=== PATIENT | male | born 1950 | race Caucasian/White ===

== ENCOUNTER 2022-05-16 02:20 | Inpatient (IN) | payer MEDICARE ==
[2022-05-16 05:00] VITALS: BMI 30.4
[2022-05-16] MEDS ORDERED: Ondansetron ODT 4 MG TAB SL PRN (05:15)
[2022-05-16] MEDS ORDERED: Acetaminophen 325 MG TAB PO PRN (05:15)
[2022-05-16] MEDS ORDERED: Dextrose 5 % And 0.9 % NaCl 1,000 ML IV SCH (05:15)
[2022-05-16] MEDS ORDERED: Ondansetron PF 4 MG/2 ML Vial IVP PRN (05:15)
[2022-05-16] MEDS ORDERED: Sodium Chloride 0.9% 1,000 ML IV SCH (05:45)
[2022-05-16] MEDS ORDERED: Oseltamivir 75 MG CAP PO SCH (06:00)
[2022-05-16 07:47] LABS: Hemoglobin 10.4 g/dL (14.0-18.0); Mean Corpuscular HGB CONC 30.9 g/dL (32.0-36.0); Mean Corpuscular Hemoglobin 28.3 pg (27.0-31.0); Mean Corpuscular Volume 91.6 fl (78.0-98.0); Mean Platelet Volume 7.9 fL (7.4-10.4); Platelet Count 111 10x3/uL (130-400); RBC Distribution Width 15.6 % (11.5-14.5); Red Blood Cell (RBC) Count 3.68 mill/uL (4.70-6.10); White Blood Cell (WBC) Count 5.4 10x3/uL (4.8-10.8)
[2022-05-16 07:48] LABS: Anion Gap 12 mmol/L (10-20); BUN (Urea Nitrogen) 34 mg/dL (8.4-25.7); Calc. Creatinine Clearance 70 mL/min (70-130); Calcium 8.2 mg/dL (7.8-10.44); Carbon Dioxide 21 mmol/L (23-31); Chloride 109 mmol/L (98-107); Estimated GFR 61; Glucose 229 mg/dL (83-110); Potassium 4.1 mmol/L (3.5-5.1); Sodium 138 mmol/L (136-145)
[2022-05-16 08:33] LABS: #Lymphocytes 0.6 thou/uL (1.20-3.40); #Monocytes 0.5 thou/uL (0.11-0.59); #Neutrophils 4.3 thou/uL (1.40-6.50); %Basophils 0.6 % (0.0-1.0); %Eosinophils 0.5 % (0.0-10.0); %Lymphocytes 11.4 % (21.0-51.0); %Monocytes 8.6 % (0.0-10.0); %Neutrophils 78.8 % (42.0-75.0); Platelet Morphology Comment Appears Adequate; RBC Morphology Normal
[2022-05-16] MEDS ORDERED: predniSONE 20 MG TAB PO SCH (11:45)
[2022-05-16] MEDS: Ipratropium/Albuterol 3 ML NEB NEB SCH ×3 (14:26→23:39)
[2022-05-16] MEDS: Glimepiride 4 MG TAB PO SCH (15:48)
[2022-05-16] MEDS: metFORMIN XR 500 MG TAB PO SCH (15:48)
[2022-05-16] MEDS: Sertraline 100 MG TAB PO SCH (20:02)
[2022-05-16] MEDS: Oseltamivir 75 MG CAP PO SCH (20:02)
[2022-05-16] MEDS: Tamsulosin HCl 0.4 MG CAP PO SCH (20:02)
[2022-05-16 20:31] LABS: #Lymphocytes 0.4 thou/uL (1.20-3.40); #Monocytes 0.1 thou/uL (0.11-0.59); #Neutrophils 3.4 thou/uL (1.40-6.50); %Eosinophils 0.1 % (0.0-10.0); %Lymphocytes 10.3 % (21.0-51.0); %Monocytes 3.2 % (0.0-10.0); %Neutrophils 86.4 % (42.0-75.0); Hemoglobin 11.3 g/dL (14.0-18.0); Mean Corpuscular Hemoglobin 29.3 pg (27.0-31.0); Mean Corpuscular Volume 91.4 fl (78.0-98.0); Platelet Count 110 10x3/uL (130-400); RBC Distribution Width 15.4 % (11.5-14.5); Red Blood Cell (RBC) Count 3.85 mill/uL (4.70-6.10)
[2022-05-16 20:37] LABS: Anion Gap 18 mmol/L (10-20); BUN (Urea Nitrogen) 34 mg/dL (8.4-25.7); Calc. Creatinine Clearance 55 mL/min (70-130); Calcium 8.4 mg/dL (7.8-10.44); Carbon Dioxide 15 mmol/L (23-31); Chloride 107 mmol/L (98-107); Estimated GFR 46; Glucose 399 mg/dL (83-110); Potassium 3.9 mmol/L (3.5-5.1); Sodium 136 mmol/L (136-145)
[2022-05-16 20:54] LABS: Troponin I 2.309 ng/mL (< 0.028)
[2022-05-17 00:28] LABS: Troponin I 3.474 ng/mL (< 0.028)
[2022-05-17] MEDS: Aspirin 325 MG TAB PO SCH ×2 (02:25→02:50)
[2022-05-17 06:33] LABS: #Lymphocytes 0.5 thou/uL (1.20-3.40); #Monocytes 0.5 thou/uL (0.11-0.59); #Neutrophils 3.3 thou/uL (1.40-6.50); %Basophils 0.1 % (0.0-1.0); %Eosinophils 0.1 % (0.0-10.0); %Lymphocytes 10.8 % (21.0-51.0); %Monocytes 10.9 % (0.0-10.0); %Neutrophils 78.1 % (42.0-75.0); Anion Gap 13 mmol/L (10-20); BUN (Urea Nitrogen) 30 mg/dL (8.4-25.7); Calc. Creatinine Clearance 82 mL/min (70-130); Calcium 8.2 mg/dL (7.8-10.44); Carbon Dioxide 21 mmol/L (23-31); Chloride 111 mmol/L (98-107); Estimated GFR 73; Glucose 202 mg/dL (83-110); Hemoglobin 10.1 g/dL (14.0-18.0); Mean Corpuscular HGB CONC 32.5 g/dL (32.0-36.0); Mean Corpuscular Hemoglobin 29.3 pg (27.0-31.0); Mean Corpuscular Volume 90.2 fl (78.0-98.0); Mean Platelet Volume 7.7 fL (7.4-10.4); Platelet Count 105 10x3/uL (130-400); RBC Distribution Width 15.2 % (11.5-14.5); Red Blood Cell (RBC) Count 3.45 mill/uL (4.70-6.10); Sodium 141 mmol/L (136-145); White Blood Cell (WBC) Count 4.2 10x3/uL (4.8-10.8)
[2022-05-17 06:42] LABS: Troponin I 11.151 ng/mL (< 0.028)
[2022-05-17] MEDS: Ipratropium/Albuterol 3 ML NEB NEB SCH (06:42)
[2022-05-17] MEDS: Clopidogrel Bisulfate 75 MG TAB PO SCH (08:55)
[2022-05-17] MEDS: Losartan 25 MG TAB PO SCH (08:55)
[2022-05-17] MEDS: Glimepiride 4 MG TAB PO SCH ×2 (08:55→15:34)
[2022-05-17] MEDS: predniSONE 20 MG TAB PO SCH (08:56)
[2022-05-17] MEDS: Oseltamivir 75 MG CAP PO SCH ×2 (08:56→20:54)
[2022-05-17] MEDS: metFORMIN XR 500 MG TAB PO SCH ×2 (08:56→15:34)
[2022-05-17] MEDS: Amlodipine 10 MG TAB PO SCH (08:56)
[2022-05-17] MEDS: Hydrochlorothiazide 25 MG TAB PO SCH (08:56)
[2022-05-17] MEDS: Aspirin 81 mg Enteric Coated Tablet PO SCH (08:56)
[2022-05-17] MEDS: Ezetimibe 10 MG TAB PO SCH (08:56)
[2022-05-17] MEDS: Empagliflozin 10 MG TAB PO SCH (08:56)
[2022-05-17] MEDS: Rosuvastatin 20 MG TAB PO SCH (08:56)
[2022-05-17] MEDS ORDERED: Ipratropium/Albuterol 3 ML NEB NEB PRN (11:28)
[2022-05-17 16:53] LABS: CKMB 26.6 ng/mL (0-6.6)
[2022-05-17] MEDS: Tamsulosin HCl 0.4 MG CAP PO SCH (20:54)
[2022-05-17] MEDS: Sertraline 100 MG TAB PO SCH (20:54)
[2022-05-18] MEDS ORDERED: Benzonatate 100 MG CAP PO SCH (05:00)
[2022-05-18 05:01] LABS: #Lymphocytes 1.1 thou/uL (1.20-3.40); #Monocytes 0.5 thou/uL (0.11-0.59); #Neutrophils 8.9 thou/uL (1.40-6.50); %Basophils 0.2 % (0.0-1.0); %Eosinophils 0.1 % (0.0-10.0); %Lymphocytes 10.1 % (21.0-51.0); %Neutrophils 84.5 % (42.0-75.0); Hemoglobin 12.1 g/dL (14.0-18.0); Mean Corpuscular HGB CONC 32.1 g/dL (32.0-36.0); Mean Corpuscular Hemoglobin 28.9 pg (27.0-31.0); Platelet Count 163 10x3/uL (130-400); RBC Distribution Width 15.3 % (11.5-14.5); Red Blood Cell (RBC) Count 4.19 mill/uL (4.70-6.10); White Blood Cell (WBC) Count 10.5 10x3/uL (4.8-10.8)
[2022-05-18 05:25] LABS: Anion Gap 15 mmol/L (10-20); BUN (Urea Nitrogen) 32 mg/dL (8.4-25.7); Calc. Creatinine Clearance 78 mL/min (70-130); Calcium 9.1 mg/dL (7.8-10.44); Carbon Dioxide 19 mmol/L (23-31); Cardiac Risk 2.8 (Less than 4.5); Chloride 110 mmol/L (98-107); Cholesterol 111 mg/dl (< 200 Desired); Estimated GFR 69; Glucose 178 mg/dL (83-110); HDL Cholesterol 39 mg/dL (>60 Neg Risk); LDL Cholesterol, Calculated 34 mg/dL; Potassium 4.1 mmol/L (3.5-5.1); Sodium 140 mmol/L (136-145); Triglycerides 192 mg/dL (Less than 150)
[2022-05-18 05:29] LABS: Hemoglobin A1c 6.2 % (4.0-6.0)
[2022-05-18] MEDS: Acetaminophen 325 MG TAB PO PRN ×2 (09:40→23:45)
[2022-05-18] MEDS: Oseltamivir 75 MG CAP PO SCH ×2 (09:40→20:42)
[2022-05-18] MEDS: Empagliflozin 10 MG TAB PO SCH (09:40)
[2022-05-18] MEDS: Clopidogrel Bisulfate 75 MG TAB PO SCH (09:41)
[2022-05-18] MEDS: Rosuvastatin 20 MG TAB PO SCH (09:41)
[2022-05-18] MEDS: Losartan 25 MG TAB PO SCH (09:41)
[2022-05-18] MEDS: Glimepiride 4 MG TAB PO SCH ×2 (09:41→18:23)
[2022-05-18] MEDS: Aspirin 81 mg Enteric Coated Tablet PO SCH (09:41)
[2022-05-18] MEDS: Hydrochlorothiazide 25 MG TAB PO SCH (09:42)
[2022-05-18] MEDS: Amlodipine 10 MG TAB PO SCH (09:42)
[2022-05-18] MEDS: Ezetimibe 10 MG TAB PO SCH (09:42)
[2022-05-18] MEDS: predniSONE 20 MG TAB PO SCH (09:43)
[2022-05-18] MEDS: metFORMIN XR 500 MG TAB PO SCH (09:48)
[2022-05-18 11:03] LABS: Critical Call Chem Troponin I RESULT DECREASING; Troponin I 13.432 ng/mL (< 0.028)
[2022-05-18] MEDS ORDERED: Sodium Chloride 0.9% 1,000 ML IV SCH (11:30)
[2022-05-18] MEDS: Ketorolac Tromethamine 30 MG/ML VIAL IVP PRN (12:06)
[2022-05-18] MEDS ORDERED: Communication Order-Pharmacy FS SCH (16:30)
[2022-05-18] MEDS: Benzonatate 100 MG CAP PO PRN (20:41)
[2022-05-18] MEDS: Tamsulosin HCl 0.4 MG CAP PO SCH (20:42)
[2022-05-18] MEDS: Sertraline 100 MG TAB PO SCH (20:42)
[2022-05-19] MEDS: Rosuvastatin 20 MG TAB PO SCH (05:44)
[2022-05-19] MEDS: Oseltamivir 75 MG CAP PO SCH ×2 (05:44→20:23)
[2022-05-19] MEDS: Losartan 25 MG TAB PO SCH (05:44)
[2022-05-19] MEDS: Benzonatate 100 MG CAP PO PRN ×2 (05:44→20:23)
[2022-05-19] MEDS: Clopidogrel Bisulfate 75 MG TAB PO SCH (05:45)
[2022-05-19] MEDS: Aspirin 81 mg Enteric Coated Tablet PO SCH (05:45)
[2022-05-19] MEDS: Amlodipine 10 MG TAB PO SCH (05:45)
[2022-05-19] MEDS: Ezetimibe 10 MG TAB PO SCH (05:45)
[2022-05-19 08:29] LABS: #Lymphocytes 0.8 thou/uL (1.20-3.40); #Monocytes 0.4 thou/uL (0.11-0.59); #Neutrophils 4.8 thou/uL (1.40-6.50); %Basophils 0.1 % (0.0-1.0); %Eosinophils 0.2 % (0.0-10.0); %Lymphocytes 13.7 % (21.0-51.0); %Monocytes 6.3 % (0.0-10.0); %Neutrophils 79.6 % (42.0-75.0); Hemoglobin 10.8 g/dL (14.0-18.0); Mean Corpuscular HGB CONC 33.8 g/dL (32.0-36.0); Mean Corpuscular Hemoglobin 30.7 pg (27.0-31.0); Mean Corpuscular Volume 90.8 fl (78.0-98.0); Mean Platelet Volume 7.3 fL (7.4-10.4); Platelet Count 140 10x3/uL (130-400); RBC Distribution Width 15.3 % (11.5-14.5); Red Blood Cell (RBC) Count 3.52 mill/uL (4.70-6.10)
[2022-05-19 08:51] LABS: Anion Gap 14 mmol/L (10-20); BUN (Urea Nitrogen) 29 mg/dL (8.4-25.7); Calc. Creatinine Clearance 86 mL/min (70-130); Calcium 8.7 mg/dL (7.8-10.44); Carbon Dioxide 21 mmol/L (23-31); Chloride 106 mmol/L (98-107); Estimated GFR 78; Glucose 128 mg/dL (83-110); Potassium 3.5 mmol/L (3.5-5.1); Sodium 137 mmol/L (136-145)
[2022-05-19] MEDS ORDERED: Iopamidol 370 76% 100 ML VIAL ONE (09:14)
[2022-05-19] MEDS ORDERED: Iopamidol 370 76% 50 ML VIAL FS ONE (09:14)
[2022-05-19] MEDS ORDERED: Nitroglycerin 100MG/250ML BOT 250 ML ONE (11:16)
[2022-05-19] MEDS ORDERED: Lidocaine 1% PF 5 ML VIAL ONE (11:16)
[2022-05-19] MEDS ORDERED: Verapamil 5 MG/2 ML VIAL ONE (11:16)
[2022-05-19] MEDS ORDERED: Heparin 10,000 UNITS/ 10 ML VIAL ONE (11:16)
[2022-05-19] MEDS ORDERED: FENTANYL 50 MCG/ML 1 ML VIAL ONE (11:33)
[2022-05-19] MEDS ORDERED: Midazolam HCl 2 mg/2 ml Vial ONE (11:34)
[2022-05-19] MEDS ORDERED: Lidocaine 1% (PF) 30 ML VIAL ONE (12:21)
[2022-05-19] MEDS ORDERED: Nitroglycerin 0.4 MG TAB (25 Tab Bottle) SL PRN (14:10)
[2022-05-19] MEDS ORDERED: Sodium Chloride 0.9% 200 ML IV PRN (14:10)
[2022-05-19] MEDS: predniSONE 5 MG TAB PO SCH (17:13)
[2022-05-19] MEDS: Tamsulosin HCl 0.4 MG CAP PO SCH (20:23)
[2022-05-19] MEDS: Sertraline 100 MG TAB PO SCH (20:23)
[2022-05-19] MEDS: GUAIFENESIN SF SOLN 200 MG/10 ML UDCUP PO PRN (22:48)
[2022-05-20 05:10] LABS: Anion Gap 14 mmol/L (10-20); BUN (Urea Nitrogen) 30 mg/dL (8.4-25.7); Calc. Creatinine Clearance 77 mL/min (70-130); Calcium 8.2 mg/dL (7.8-10.44); Carbon Dioxide 21 mmol/L (23-31); Chloride 105 mmol/L (98-107); Estimated GFR 68; Glucose 209 mg/dL (83-110); Potassium 3.4 mmol/L (3.5-5.1); Sodium 137 mmol/L (136-145)
[2022-05-20] MEDS ORDERED: Electrolyte Replacement Protocol 1 EACH FS SCH (07:27)
[2022-05-20] MEDS ORDERED: Potassium Chloride 20 MEQ TAB PO SCH (08:00)
[2022-05-20] MEDS: Rosuvastatin 20 MG TAB PO SCH (09:39)
[2022-05-20] MEDS: Ezetimibe 10 MG TAB PO SCH (09:39)
[2022-05-20] MEDS: Aspirin 81 mg Enteric Coated Tablet PO SCH (09:39)
[2022-05-20] MEDS: Losartan 25 MG TAB PO SCH (09:41)
[2022-05-20] MEDS: Amlodipine 10 MG TAB PO SCH (09:42)
[2022-05-20] MEDS: Oseltamivir 75 MG CAP PO SCH ×2 (09:42→20:48)
[2022-05-20] MEDS: predniSONE 5 MG TAB PO SCH (09:42)
[2022-05-20] MEDS ORDERED: Furosemide 40 MG TAB PO SCH (10:00)
[2022-05-20] MEDS: hydrALAZINE 25 MG TAB PO SCH (20:46)
[2022-05-20] MEDS: Famotidine 20 MG TAB PO SCH (20:48)
[2022-05-20] MEDS: Tamsulosin HCl 0.4 MG CAP PO SCH (20:48)
[2022-05-20] MEDS: Sertraline 100 MG TAB PO SCH (20:48)
[2022-05-20] MEDS: GUAIFENESIN SF SOLN 200 MG/10 ML UDCUP PO PRN (20:48)
[2022-05-21 05:08] LABS: #Lymphocytes 0.6 thou/uL (1.20-3.40); #Monocytes 0.3 thou/uL (0.11-0.59); #Neutrophils 3.8 thou/uL (1.40-6.50); %Eosinophils 0.4 % (0.0-10.0); %Lymphocytes 11.9 % (21.0-51.0); %Monocytes 6.9 % (0.0-10.0); %Neutrophils 80.7 % (42.0-75.0); Hemoglobin 9.7 g/dL (14.0-18.0); Mean Corpuscular HGB CONC 32.4 g/dL (32.0-36.0); Mean Corpuscular Hemoglobin 29.4 pg (27.0-31.0); Mean Corpuscular Volume 90.6 fl (78.0-98.0); Mean Platelet Volume 7.8 fL (7.4-10.4); Platelet Count 154 10x3/uL (130-400); RBC Distribution Width 15.1 % (11.5-14.5); White Blood Cell (WBC) Count 4.7 10x3/uL (4.8-10.8)
[2022-05-21 05:18] LABS: ALT (SGPT) 83 U/L (8-55); AST (SGOT) 70 U/L (5-34); Albumin 3.1 g/dL (3.4-4.8); Alkaline Phosphatase 68 U/L (40-110); Anion Gap 14 mmol/L (10-20); BUN (Urea Nitrogen) 38 mg/dL (8.4-25.7); Bilirubin, Total 0.6 mg/dL (0.2-1.2); Calc. Creatinine Clearance 73 mL/min (70-130); Calcium 8.4 mg/dL (7.8-10.44); Carbon Dioxide 21 mmol/L (23-31); Chloride 107 mmol/L (98-107); Estimated GFR 64; Globulin 3.2 g/dL (2.4-3.5); Glucose 329 mg/dL (83-110); Magnesium 2.3 mg/dL (1.6-2.6); Phosphorus 2.4 mg/dL (2.3-4.7); Potassium 3.7 mmol/L (3.5-5.1); Protein, Total 6.3 g/dL (5.8-8.1); Sodium 138 mmol/L (136-145)
[2022-05-21] MEDS: Rosuvastatin 20 MG TAB PO SCH (10:54)
[2022-05-21] MEDS: Amlodipine 10 MG TAB PO SCH (10:55)
[2022-05-21] MEDS: predniSONE 5 MG TAB PO SCH (10:55)
[2022-05-21] MEDS: Aspirin 81 mg Enteric Coated Tablet PO SCH (10:55)
[2022-05-21] MEDS: Famotidine 20 MG TAB PO SCH ×2 (10:55→20:09)
[2022-05-21] MEDS: Ezetimibe 10 MG TAB PO SCH (10:55)
[2022-05-21] MEDS: Furosemide 40 MG TAB PO SCH (10:56)
[2022-05-21] MEDS: Losartan 25 MG TAB PO SCH (10:57)
[2022-05-21] MEDS: hydrALAZINE 25 MG TAB PO SCH ×3 (11:03→20:08)
[2022-05-21] MEDS ORDERED: ALPRAZolam 1 MG TAB PO SCH (19:30)
[2022-05-21] MEDS: Sertraline 100 MG TAB PO SCH (20:09)
[2022-05-21] MEDS: Tamsulosin HCl 0.4 MG CAP PO SCH (20:09)
[2022-05-21] MEDS: GUAIFENESIN SF SOLN 200 MG/10 ML UDCUP PO PRN (20:10)
[2022-05-21] MEDS: Doxycycline 100 MG in Sodium Chloride 0.9% 100 ML IVPB SCH (20:10)
[2022-05-21] MEDS ORDERED: hydrALAZINE 25 MG TAB PO SCH (21:00)
[2022-05-22] MEDS ORDERED: Ipratropium Bromide 2.5 ml Neb NEB SCH (03:00)
[2022-05-22 05:55] LABS: #Eosinphils 0.1 thou/uL (0.0-0.7); #Lymphocytes 0.7 thou/uL (1.20-3.40); #Monocytes 0.4 thou/uL (0.11-0.59); #Neutrophils 4.7 thou/uL (1.40-6.50); %Eosinophils 0.9 % (0.0-10.0); %Lymphocytes 12.1 % (21.0-51.0); %Monocytes 6.2 % (0.0-10.0); %Neutrophils 80.9 % (42.0-75.0); Mean Corpuscular HGB CONC 34.6 g/dL (32.0-36.0); Mean Corpuscular Hemoglobin 30.9 pg (27.0-31.0); Mean Corpuscular Volume 89.3 fl (78.0-98.0); Mean Platelet Volume 7.3 fL (7.4-10.4); Platelet Count 184 10x3/uL (130-400); RBC Distribution Width 14.8 % (11.5-14.5); Red Blood Cell (RBC) Count 3.23 mill/uL (4.70-6.10); White Blood Cell (WBC) Count 5.8 10x3/uL (4.8-10.8)
[2022-05-22] MEDS: hydrALAZINE 25 MG TAB PO SCH ×3 (06:01→20:56)
[2022-05-22 06:18] LABS: ALT (SGPT) 60 U/L (8-55); AST (SGOT) 25 U/L (5-34); Albumin 3.2 g/dL (3.4-4.8); Alkaline Phosphatase 73 U/L (40-110); Anion Gap 13 mmol/L (10-20); BUN (Urea Nitrogen) 31 mg/dL (8.4-25.7); Bilirubin, Total 0.6 mg/dL (0.2-1.2); Calc. Creatinine Clearance 75 mL/min (70-130); Calcium 8.3 mg/dL (7.8-10.44); Carbon Dioxide 23 mmol/L (23-31); Chloride 107 mmol/L (98-107); Estimated GFR 66; Globulin 3.2 g/dL (2.4-3.5); Glucose 389 mg/dL (83-110); Magnesium 2.3 mg/dL (1.6-2.6); Phosphorus 2.3 mg/dL (2.3-4.7); Potassium 3.6 mmol/L (3.5-5.1); Protein, Total 6.4 g/dL (5.8-8.1); Sodium 139 mmol/L (136-145)
[2022-05-22] MEDS: Aspirin 81 mg Enteric Coated Tablet PO SCH (09:26)
[2022-05-22] MEDS: Furosemide 40 MG TAB PO SCH (09:26)
[2022-05-22] MEDS: Famotidine 20 MG TAB PO SCH ×2 (09:27→20:57)
[2022-05-22] MEDS: Ezetimibe 10 MG TAB PO SCH (09:27)
[2022-05-22] MEDS: Rosuvastatin 20 MG TAB PO SCH (09:27)
[2022-05-22] MEDS: Losartan 25 MG TAB PO SCH (09:27)
[2022-05-22] MEDS: Amlodipine 10 MG TAB PO SCH (09:27)
[2022-05-22] MEDS: predniSONE 5 MG TAB PO SCH (09:27)
[2022-05-22] MEDS: Doxycycline 100 MG in Sodium Chloride 0.9% 100 ML IVPB SCH ×2 (09:30→20:58)
[2022-05-22] MEDS ORDERED: Furosemide 20 MG/2 ML VIAL SLOW IVP SCH (10:15)
[2022-05-22 11:30] LABS: Actual Bicarbonate (HCO3a) 24.5 mEq/L (22-28); Base Excess (BEa) 1.3 mEq/L (-2.0 to +3.0); CO2 Tension 33.8 mmHg (35.0-45.0); Calcium, Ionized (arterial) 1.11 mmol/L (1.12-1.30); Carboxyhemoglobin (COHb) 0.1 gm% (0.0-3.0); Hemoglobin (Hb) 10.5 g/dL (14.0-18.0); Potassium - ABG Lab 3.65 mmol/L (3.70-5.30); pH, Arterial 7.48 (7.35-7.45)
[2022-05-22 11:35] LABS: Puncture Site RBA
[2022-05-22] MEDS ORDERED: Piperacillin/Tazobactam 3.375 GM in Sodium Chloride 0.9% 100 ML IVPB SCH ×2 (13:30→14:00)
[2022-05-22] MEDS: GUAIFENESIN SF SOLN 200 MG/10 ML UDCUP PO PRN (14:18)
[2022-05-22] MEDS ORDERED: Lisinopril 5 MG TAB PO SCH (15:00)
[2022-05-22] MEDS ORDERED: Dextrose 50% Abboject 50 ML SYRINGE SLOW IVP PRN (16:19)
[2022-05-22] MEDS ORDERED: Dextrose 5% in Water 1,000 ML IV PRN (16:19)
[2022-05-22] MEDS: HumaLOG 300 UNITS/3 ML VIAL SC PRN ×2 (16:58→21:08)
[2022-05-22] MEDS: Acetaminophen 325 MG TAB PO PRN (18:40)
[2022-05-22] MEDS: Piperacillin/Tazobactam 3.375 GM in Sodium Chloride 0.9% 100 ML IVPB SCH (18:40)
[2022-05-22] MEDS: Tamsulosin HCl 0.4 MG CAP PO SCH (20:55)
[2022-05-22] MEDS: Sertraline 100 MG TAB PO SCH (20:56)
[2022-05-22] MEDS: Lisinopril 10 MG TAB PO SCH (20:57)
[2022-05-23] MEDS: Piperacillin/Tazobactam 3.375 GM in Sodium Chloride 0.9% 100 ML IVPB SCH ×3 (02:29→17:53)
[2022-05-23] MEDS: Ketorolac Tromethamine 30 MG/ML VIAL IVP PRN (02:34)
[2022-05-23 03:50] LABS: #Eosinphils 0.1 thou/uL (0.0-0.7); #Lymphocytes 0.9 thou/uL (1.20-3.40); #Monocytes 0.6 thou/uL (0.11-0.59); #Neutrophils 5.3 thou/uL (1.40-6.50); %Basophils 0.6 % (0.0-1.0); %Eosinophils 1.3 % (0.0-10.0); %Lymphocytes 13.2 % (21.0-51.0); %Monocytes 8.5 % (0.0-10.0); %Neutrophils 76.4 % (42.0-75.0); Hemoglobin 9.2 g/dL (14.0-18.0); Mean Corpuscular HGB CONC 31.8 g/dL (32.0-36.0); Mean Corpuscular Hemoglobin 29.2 pg (27.0-31.0); Mean Corpuscular Volume 91.8 fl (78.0-98.0); Mean Platelet Volume 7.7 fL (7.4-10.4); Platelet Count 188 10x3/uL (130-400); RBC Distribution Width 15.1 % (11.5-14.5); Red Blood Cell (RBC) Count 3.16 mill/uL (4.70-6.10); White Blood Cell (WBC) Count 6.9 10x3/uL (4.8-10.8)
[2022-05-23 04:56] LABS: ALT (SGPT) 76 U/L (8-55); AST (SGOT) 72 U/L (5-34); Albumin 2.7 g/dL (3.4-4.8); Alkaline Phosphatase 76 U/L (40-110); Anion Gap 15 mmol/L (10-20); BUN (Urea Nitrogen) 28 mg/dL (8.4-25.7); Bilirubin, Total 0.6 mg/dL (0.2-1.2); Calc. Creatinine Clearance 0 mL/min (70-130); Carbon Dioxide 17 mmol/L (23-31); Chloride 110 mmol/L (98-107); Estimated GFR 71; Globulin 3.5 g/dL (2.4-3.5); Glucose 213 mg/dL (83-110); Potassium 4.3 mmol/L (3.5-5.1); Protein, Total 6.2 g/dL (5.8-8.1); Sodium 138 mmol/L (136-145)
[2022-05-23] MEDS: hydrALAZINE 25 MG TAB PO SCH ×3 (06:07→21:35)
[2022-05-23] MEDS: HumaLOG 300 UNITS/3 ML VIAL SC PRN ×4 (06:08→21:55)
[2022-05-23] MEDS: Losartan 25 MG TAB PO SCH (08:28)
[2022-05-23] MEDS: Ezetimibe 10 MG TAB PO SCH (08:28)
[2022-05-23] MEDS: Amlodipine 10 MG TAB PO SCH (08:28)
[2022-05-23] MEDS: Lisinopril 10 MG TAB PO SCH ×2 (08:28→21:36)
[2022-05-23] MEDS: Rosuvastatin 20 MG TAB PO SCH (08:28)
[2022-05-23] MEDS: predniSONE 5 MG TAB PO SCH (08:29)
[2022-05-23] MEDS: Doxycycline 100 MG in Sodium Chloride 0.9% 100 ML IVPB SCH ×2 (08:29→21:48)
[2022-05-23] MEDS: Aspirin 81 mg Enteric Coated Tablet PO SCH (08:29)
[2022-05-23] MEDS: Furosemide 40 MG TAB PO SCH (08:29)
[2022-05-23] MEDS: Acetaminophen 325 MG TAB PO PRN (16:23)
[2022-05-23] MEDS ORDERED: Promethazine HCl 12.5 MG in Sodium Chloride 0.9% 50 ML IVPB PRN (18:55)
[2022-05-23] MEDS: GUAIFENESIN SF SOLN 200 MG/10 ML UDCUP PO PRN (19:09)
[2022-05-23] MEDS: Sertraline 100 MG TAB PO SCH (21:35)
[2022-05-23] MEDS: Tamsulosin HCl 0.4 MG CAP PO SCH (21:35)
[2022-05-24] MEDS: GUAIFENESIN SF SOLN 200 MG/10 ML UDCUP PO PRN ×2 (00:51→08:14)
[2022-05-24] MEDS: Piperacillin/Tazobactam 3.375 GM in Sodium Chloride 0.9% 100 ML IVPB SCH ×3 (03:04→20:31)
[2022-05-24] MEDS: hydrALAZINE 25 MG TAB PO SCH ×3 (05:05→21:20)
[2022-05-24] MEDS: HumaLOG 300 UNITS/3 ML VIAL SC PRN ×2 (06:29→20:37)
[2022-05-24] MEDS: Doxycycline 100 MG in Sodium Chloride 0.9% 100 ML IVPB SCH ×2 (08:00→20:31)
[2022-05-24] MEDS: Aspirin 81 mg Enteric Coated Tablet PO SCH (08:01)
[2022-05-24] MEDS: Losartan 25 MG TAB PO SCH (08:01)
[2022-05-24] MEDS: Ezetimibe 10 MG TAB PO SCH (08:01)
[2022-05-24] MEDS: Lisinopril 10 MG TAB PO SCH (08:01)
[2022-05-24] MEDS: Rosuvastatin 20 MG TAB PO SCH (08:01)
[2022-05-24] MEDS: Furosemide 40 MG TAB PO SCH (08:02)
[2022-05-24] MEDS: Amlodipine 10 MG TAB PO SCH (08:02)
[2022-05-24] MEDS: predniSONE 5 MG TAB PO SCH (08:02)
[2022-05-24] MEDS: Sertraline 100 MG TAB PO SCH (20:31)
[2022-05-24] MEDS: Tamsulosin HCl 0.4 MG CAP PO SCH (20:31)
[2022-05-24] MEDS: Acetaminophen 325 MG TAB PO PRN (21:54)
[2022-05-25] MEDS: Acetaminophen 325 MG TAB PO PRN ×2 (03:02→08:33)
[2022-05-25] MEDS: Piperacillin/Tazobactam 3.375 GM in Sodium Chloride 0.9% 100 ML IVPB SCH ×3 (03:02→20:01)
[2022-05-25 03:45] LABS: #Eosinphils 0.1 thou/uL (0.0-0.7); #Monocytes 0.7 thou/uL (0.11-0.59); #Neutrophils 5.7 thou/uL (1.40-6.50); %Basophils 0.2 % (0.0-1.0); %Eosinophils 1.4 % (0.0-10.0); %Lymphocytes 13.6 % (21.0-51.0); %Monocytes 9.6 % (0.0-10.0); %Neutrophils 75.2 % (42.0-75.0); Hemoglobin 9.7 g/dL (14.0-18.0); Mean Corpuscular HGB CONC 31.6 g/dL (32.0-36.0); Mean Corpuscular Hemoglobin 28.4 pg (27.0-31.0); Mean Corpuscular Volume 89.9 fl (78.0-98.0); Platelet Count 206 10x3/uL (130-400); RBC Distribution Width 15.3 % (11.5-14.5); Red Blood Cell (RBC) Count 3.42 mill/uL (4.70-6.10); White Blood Cell (WBC) Count 7.5 10x3/uL (4.8-10.8)
[2022-05-25 04:07] LABS: ALT (SGPT) 131 U/L (8-55); AST (SGOT) 68 U/L (5-34); Alkaline Phosphatase 89 U/L (40-110); Anion Gap 11 mmol/L (10-20); BUN (Urea Nitrogen) 26 mg/dL (8.4-25.7); Bilirubin, Total 0.7 mg/dL (0.2-1.2); Calc. Creatinine Clearance 87 mL/min (70-130); Calcium 8.1 mg/dL (7.8-10.44); Carbon Dioxide 23 mmol/L (23-31); Chloride 111 mmol/L (98-107); Estimated GFR 74; Globulin 2.5 g/dL (2.4-3.5); Glucose 251 mg/dL (83-110); Magnesium 1.7 mg/dL (1.6-2.6); Potassium 3.4 mmol/L (3.5-5.1); Protein, Total 5.5 g/dL (5.8-8.1); Sodium 142 mmol/L (136-145)
[2022-05-25] MEDS: hydrALAZINE 25 MG TAB PO SCH ×3 (06:28→21:19)
[2022-05-25] MEDS: HumaLOG 300 UNITS/3 ML VIAL SC PRN ×4 (06:31→20:12)
[2022-05-25] MEDS ORDERED: Potassium Chloride 20 MEQ TAB PO SCH (08:00)
[2022-05-25] MEDS ORDERED: Magnesium 2 GM/50 ML(in water) 2 GM in Premix Bag 1 BAG IVPB SCH (08:00)
[2022-05-25] MEDS: Losartan 25 MG TAB PO SCH (08:28)
[2022-05-25] MEDS: Ezetimibe 10 MG TAB PO SCH (08:29)
[2022-05-25] MEDS: Amlodipine 10 MG TAB PO SCH (08:29)
[2022-05-25] MEDS: Doxycycline 100 MG CAP PO SCH ×2 (08:29→20:01)
[2022-05-25] MEDS: Rosuvastatin 20 MG TAB PO SCH (08:29)
[2022-05-25] MEDS: Furosemide 40 MG TAB PO SCH (08:29)
[2022-05-25] MEDS: Aspirin 81 mg Enteric Coated Tablet PO SCH (08:30)
[2022-05-25] MEDS ORDERED: Ibuprofen 600 MG TAB PO SCH (14:00)
[2022-05-25] MEDS ORDERED: Furosemide 40 MG/4 ML VIAL SLOW IVP SCH (16:13)
[2022-05-25] MEDS: Ibuprofen 600 MG TAB PO SCH ×2 (16:44→23:37)
[2022-05-25] MEDS: Tamsulosin HCl 0.4 MG CAP PO SCH (20:01)
[2022-05-25] MEDS: Sertraline 100 MG TAB PO SCH (20:01)
[2022-05-25] MEDS: GUAIFENESIN SF SOLN 200 MG/10 ML UDCUP PO PRN ×2 (20:10→23:37)
[2022-05-26] MEDS: Piperacillin/Tazobactam 3.375 GM in Sodium Chloride 0.9% 100 ML IVPB SCH ×3 (03:22→20:24)
[2022-05-26 03:57] LABS: #Eosinphils 0.1 thou/uL (0.0-0.7); #Lymphocytes 1.1 thou/uL (1.20-3.40); #Monocytes 0.6 thou/uL (0.11-0.59); #Neutrophils 5.8 thou/uL (1.40-6.50); %Basophils 0.5 % (0.0-1.0); %Eosinophils 1.5 % (0.0-10.0); %Lymphocytes 13.8 % (21.0-51.0); %Monocytes 8.1 % (0.0-10.0); %Neutrophils 76.2 % (42.0-75.0); Hemoglobin 9.6 g/dL (14.0-18.0); Mean Corpuscular HGB CONC 32.9 g/dL (32.0-36.0); Mean Corpuscular Hemoglobin 29.9 pg (27.0-31.0); Mean Corpuscular Volume 90.9 fl (78.0-98.0); Mean Platelet Volume 7.3 fL (7.4-10.4); Platelet Count 204 10x3/uL (130-400); RBC Distribution Width 15.6 % (11.5-14.5); White Blood Cell (WBC) Count 7.6 10x3/uL (4.8-10.8)
[2022-05-26 04:20] LABS: ALT (SGPT) 107 U/L (8-55); AST (SGOT) 43 U/L (5-34); Albumin 2.8 g/dL (3.4-4.8); Alkaline Phosphatase 84 U/L (40-110); Anion Gap 13 mmol/L (10-20); BUN (Urea Nitrogen) 27 mg/dL (8.4-25.7); Bilirubin, Total 0.6 mg/dL (0.2-1.2); Calc. Creatinine Clearance 79 mL/min (70-130); Calcium 8.3 mg/dL (7.8-10.44); Carbon Dioxide 22 mmol/L (23-31); Chloride 109 mmol/L (98-107); Estimated GFR 66; Globulin 3.2 g/dL (2.4-3.5); Glucose 272 mg/dL (83-110); Potassium 3.4 mmol/L (3.5-5.1); Sodium 141 mmol/L (136-145)
[2022-05-26] MEDS: Ibuprofen 600 MG TAB PO SCH ×3 (05:28→16:51)
[2022-05-26] MEDS: hydrALAZINE 25 MG TAB PO SCH ×3 (05:28→21:23)
[2022-05-26] MEDS: HumaLOG 300 UNITS/3 ML VIAL SC PRN ×3 (06:20→20:25)
[2022-05-26] MEDS: Rosuvastatin 20 MG TAB PO SCH (08:28)
[2022-05-26] MEDS: Furosemide 40 MG TAB PO SCH (08:28)
[2022-05-26] MEDS: Losartan 25 MG TAB PO SCH (08:28)
[2022-05-26] MEDS: Amlodipine 10 MG TAB PO SCH (08:28)
[2022-05-26] MEDS: Doxycycline 100 MG CAP PO SCH ×2 (08:28→20:24)
[2022-05-26] MEDS: Aspirin 81 mg Enteric Coated Tablet PO SCH (08:28)
[2022-05-26] MEDS: Ezetimibe 10 MG TAB PO SCH (08:28)
[2022-05-26] MEDS ORDERED: Potassium Chloride 20 MEQ TAB PO SCH ×2 (10:15→12:00)
[2022-05-26] MEDS ORDERED: Ipratropium/Albuterol 3 ML NEB EZPAP PRN (10:48)
[2022-05-26] MEDS ORDERED: Electrolyte Replacement Protocol 1 EACH FS SCH (11:00)
[2022-05-26] MEDS ORDERED: Electrolyte Replacement Protocol FS PRN (12:00)
[2022-05-26] MEDS ORDERED: Empagliflozin 10 MG TAB PO SCH (16:30)
[2022-05-26 16:35] LABS: Potassium 4.1 mmol/L (3.5-5.1)
[2022-05-26] MEDS: Empagliflozin 10 MG TAB PO SCH ×2 (16:35→16:44)
[2022-05-26] MEDS: Tamsulosin HCl 0.4 MG CAP PO SCH (20:24)
[2022-05-26] MEDS: Sertraline 100 MG TAB PO SCH (20:24)
[2022-05-26] MEDS: Acetylcysteine 10% 100 MG/ML 30 ml Vial PO SCH (22:37)
[2022-05-27] MEDS: Ibuprofen 600 MG TAB PO SCH ×5 (00:32→23:23)
[2022-05-27] MEDS: Piperacillin/Tazobactam 3.375 GM in Sodium Chloride 0.9% 100 ML IVPB SCH ×3 (04:22→20:32)
[2022-05-27] MEDS: hydrALAZINE 25 MG TAB PO SCH ×3 (05:37→23:23)
[2022-05-27] MEDS: HumaLOG 300 UNITS/3 ML VIAL SC PRN ×2 (05:38→20:42)
[2022-05-27 05:59] LABS: #Eosinphils 0.3 thou/uL (0.0-0.7); #Lymphocytes 1.1 thou/uL (1.20-3.40); #Monocytes 0.8 thou/uL (0.11-0.59); #Neutrophils 6.4 thou/uL (1.40-6.50); %Basophils 0.1 % (0.0-1.0); %Eosinophils 3.1 % (0.0-10.0); %Lymphocytes 12.8 % (21.0-51.0); %Monocytes 8.8 % (0.0-10.0); %Neutrophils 75.3 % (42.0-75.0); Hemoglobin 9.5 g/dL (14.0-18.0); Mean Corpuscular HGB CONC 31.4 g/dL (32.0-36.0); Mean Corpuscular Hemoglobin 28.3 pg (27.0-31.0); Mean Corpuscular Volume 89.9 fl (78.0-98.0); Mean Platelet Volume 7.4 fL (7.4-10.4); Platelet Count 213 10x3/uL (130-400); RBC Distribution Width 15.8 % (11.5-14.5); Red Blood Cell (RBC) Count 3.37 mill/uL (4.70-6.10); White Blood Cell (WBC) Count 8.5 10x3/uL (4.8-10.8)
[2022-05-27 06:31] LABS: ALT (SGPT) 86 U/L (8-55); AST (SGOT) 33 U/L (5-34); Alkaline Phosphatase 85 U/L (40-110); Anion Gap 12 mmol/L (10-20); BUN (Urea Nitrogen) 25 mg/dL (8.4-25.7); Bilirubin, Total 0.5 mg/dL (0.2-1.2); Calc. Creatinine Clearance 77 mL/min (70-130); Calcium 8.5 mg/dL (7.8-10.44); Carbon Dioxide 22 mmol/L (23-31); Chloride 112 mmol/L (98-107); Estimated GFR 63; Globulin 3.3 g/dL (2.4-3.5); Glucose 222 mg/dL (83-110); Magnesium 1.9 mg/dL (1.6-2.6); Phosphorus 3.7 mg/dL (2.3-4.7); Potassium 3.7 mmol/L (3.5-5.1); Protein, Total 6.3 g/dL (5.8-8.1); Sodium 142 mmol/L (136-145)
[2022-05-27] MEDS ORDERED: Magnesium 2 GM/50 ML(in water) 2 GM in Premix Bag 1 BAG IVPB SCH (08:00)
[2022-05-27] MEDS: Doxycycline 100 MG CAP PO SCH ×2 (08:49→20:33)
[2022-05-27] MEDS: Losartan 25 MG TAB PO SCH (08:49)
[2022-05-27] MEDS: Aspirin 81 mg Enteric Coated Tablet PO SCH (08:49)
[2022-05-27] MEDS: Furosemide 40 MG/4 ML VIAL SLOW IVP SCH (08:49)
[2022-05-27] MEDS: Amlodipine 10 MG TAB PO SCH (08:49)
[2022-05-27] MEDS: Empagliflozin 10 MG TAB PO SCH (08:50)
[2022-05-27] MEDS: Rosuvastatin 20 MG TAB PO SCH (08:50)
[2022-05-27] MEDS: Ezetimibe 10 MG TAB PO SCH (08:50)
[2022-05-27] MEDS: GUAIFENESIN SF SOLN 200 MG/10 ML UDCUP PO PRN (08:57)
[2022-05-27] MEDS: Acetylcysteine 10% 100 MG/ML 30 ml Vial PO SCH ×2 (11:15→23:22)
[2022-05-27] MEDS ORDERED: Ipratropium Bromide 2.5 ml Neb ONE (11:39)
[2022-05-27] MEDS ORDERED: Ipratropium Bromide 2.5 ml Neb NEB SCH (13:00)
[2022-05-27] MEDS: Sertraline 100 MG TAB PO SCH (20:33)
[2022-05-27] MEDS: Tamsulosin HCl 0.4 MG CAP PO SCH (20:33)
[2022-05-27] MEDS ORDERED: Insulin Glargine 30 UNITS/0.3 ML VIAL SC SCH (21:00)
[2022-05-28] MEDS: Piperacillin/Tazobactam 3.375 GM in Sodium Chloride 0.9% 100 ML IVPB SCH ×3 (03:46→20:38)
[2022-05-28] MEDS: Ibuprofen 600 MG TAB PO SCH ×2 (06:19→13:06)
[2022-05-28] MEDS: hydrALAZINE 25 MG TAB PO SCH ×3 (06:19→20:39)
[2022-05-28] MEDS: HumaLOG 300 UNITS/3 ML VIAL SC PRN ×3 (06:23→20:40)
[2022-05-28 07:12] LABS: #Eosinphils 0.3 thou/uL (0.0-0.7); #Lymphocytes 1.3 thou/uL (1.20-3.40); #Monocytes 0.8 thou/uL (0.11-0.59); #Neutrophils 8.3 thou/uL (1.40-6.50); %Basophils 0.3 % (0.0-1.0); %Eosinophils 2.6 % (0.0-10.0); %Lymphocytes 12.2 % (21.0-51.0); %Monocytes 7.1 % (0.0-10.0); %Neutrophils 77.8 % (42.0-75.0); Hemoglobin 10.1 g/dL (14.0-18.0); Mean Corpuscular HGB CONC 31.9 g/dL (32.0-36.0); Mean Corpuscular Hemoglobin 28.9 pg (27.0-31.0); Mean Corpuscular Volume 90.6 fl (78.0-98.0); Mean Platelet Volume 7.2 fL (7.4-10.4); Platelet Count 228 10x3/uL (130-400); RBC Distribution Width 15.8 % (11.5-14.5); Red Blood Cell (RBC) Count 3.51 mill/uL (4.70-6.10); White Blood Cell (WBC) Count 10.6 10x3/uL (4.8-10.8)
[2022-05-28 07:32] LABS: ALT (SGPT) 69 U/L (8-55); AST (SGOT) 29 U/L (5-34); Alkaline Phosphatase 85 U/L (40-110); Anion Gap 13 mmol/L (10-20); BUN (Urea Nitrogen) 26 mg/dL (8.4-25.7); Bilirubin, Total 0.5 mg/dL (0.2-1.2); Calc. Creatinine Clearance 69 mL/min (70-130); Calcium 8.5 mg/dL (7.8-10.44); Carbon Dioxide 21 mmol/L (23-31); Chloride 110 mmol/L (98-107); Estimated GFR 55; Globulin 3.3 g/dL (2.4-3.5); Glucose 227 mg/dL (83-110); Potassium 3.5 mmol/L (3.5-5.1); Protein, Total 6.3 g/dL (5.8-8.1); Sodium 140 mmol/L (136-145)
[2022-05-28] MEDS: Acetylcysteine 10% 100 MG/ML 30 ml Vial PO SCH ×2 (09:04→20:39)
[2022-05-28] MEDS: Furosemide 40 MG/4 ML VIAL SLOW IVP SCH (09:04)
[2022-05-28] MEDS: Losartan 25 MG TAB PO SCH (09:04)
[2022-05-28] MEDS: Doxycycline 100 MG CAP PO SCH ×2 (09:05→20:38)
[2022-05-28] MEDS: Rosuvastatin 20 MG TAB PO SCH (09:05)
[2022-05-28] MEDS: Potassium Chloride 20 MEQ TAB PO SCH (09:05)
[2022-05-28] MEDS: Amlodipine 10 MG TAB PO SCH (09:05)
[2022-05-28] MEDS: Ezetimibe 10 MG TAB PO SCH (09:06)
[2022-05-28] MEDS: Aspirin 81 mg Enteric Coated Tablet PO SCH (09:06)
[2022-05-28] MEDS ORDERED: Hydrochlorothiazide 25 MG TAB PO SCH (14:30)
[2022-05-28] MEDS: Tamsulosin HCl 0.4 MG CAP PO SCH (20:39)
[2022-05-28] MEDS: Isosorbide Dinitrate 20 MG TAB PO SCH (20:39)
[2022-05-28] MEDS: Sertraline 100 MG TAB PO SCH (20:39)
[2022-05-28] MEDS ORDERED: Insulin Glargine 30 UNITS/0.3 ML VIAL SC SCH (21:00)
[2022-05-29] MEDS: Piperacillin/Tazobactam 3.375 GM in Sodium Chloride 0.9% 100 ML IVPB SCH (03:35)
[2022-05-29] MEDS: hydrALAZINE 25 MG TAB PO SCH ×3 (06:10→20:53)
[2022-05-29] MEDS: Potassium Chloride 20 MEQ TAB PO SCH (09:00)
[2022-05-29] MEDS: Aspirin 81 mg Enteric Coated Tablet PO SCH (09:01)
[2022-05-29] MEDS: Doxycycline 100 MG CAP PO SCH ×2 (09:01→20:53)
[2022-05-29] MEDS: Amlodipine 10 MG TAB PO SCH (09:01)
[2022-05-29] MEDS: Empagliflozin 10 MG TAB PO SCH (09:01)
[2022-05-29] MEDS: Hydrochlorothiazide 25 MG TAB PO SCH (09:02)
[2022-05-29] MEDS: Furosemide 40 MG/4 ML VIAL SLOW IVP SCH (09:02)
[2022-05-29] MEDS: Ezetimibe 10 MG TAB PO SCH (09:02)
[2022-05-29] MEDS: Isosorbide Dinitrate 20 MG TAB PO SCH ×2 (09:02→20:53)
[2022-05-29] MEDS: Rosuvastatin 20 MG TAB PO SCH (09:03)
[2022-05-29] MEDS: Losartan 25 MG TAB PO SCH (09:03)
[2022-05-29 09:18] LABS: Anion Gap 13 mmol/L (10-20); BUN (Urea Nitrogen) 22 mg/dL (8.4-25.7); Calc. Creatinine Clearance 82 mL/min (70-130); Calcium 8.9 mg/dL (7.8-10.44); Carbon Dioxide 25 mmol/L (23-31); Chloride 106 mmol/L (98-107); Estimated GFR 68; Glucose 186 mg/dL (83-110); Potassium 3.5 mmol/L (3.5-5.1); Sodium 140 mmol/L (136-145)
[2022-05-29] MEDS ORDERED: Potassium Chloride 20 MEQ TAB PO SCH (12:00)
[2022-05-29] MEDS: Acetylcysteine 10% 100 MG/ML 30 ml Vial PO SCH ×2 (12:59→20:52)
[2022-05-29] MEDS: HumaLOG 300 UNITS/3 ML VIAL SC PRN ×2 (17:04→20:52)
[2022-05-29] MEDS: Tamsulosin HCl 0.4 MG CAP PO SCH (20:53)
[2022-05-29] MEDS: Sertraline 100 MG TAB PO SCH (20:53)
[2022-05-29] MEDS ORDERED: Insulin Glargine 30 UNITS/0.3 ML VIAL SC SCH (21:00)
[2022-05-30] MEDS: Acetaminophen 325 MG TAB PO PRN ×2 (01:53→16:37)
[2022-05-30] MEDS: HumaLOG 300 UNITS/3 ML VIAL SC PRN ×3 (05:24→16:38)
[2022-05-30] MEDS: hydrALAZINE 25 MG TAB PO SCH ×3 (05:24→21:48)
[2022-05-30 09:20] LABS: Anion Gap 12 mmol/L (10-20); BUN (Urea Nitrogen) 22 mg/dL (8.4-25.7); Calc. Creatinine Clearance 89 mL/min (70-130); Calcium 8.4 mg/dL (7.8-10.44); Carbon Dioxide 23 mmol/L (23-31); Chloride 109 mmol/L (98-107); Estimated GFR 75; Glucose 255 mg/dL (83-110); Potassium 3.5 mmol/L (3.5-5.1); Sodium 140 mmol/L (136-145)
[2022-05-30] MEDS ORDERED: Furosemide 40 MG TAB PO SCH (10:30)
[2022-05-30] MEDS: Doxycycline 100 MG CAP PO SCH (10:48)
[2022-05-30] MEDS: Potassium Chloride 20 MEQ TAB PO SCH (10:48)
[2022-05-30] MEDS: Aspirin 81 mg Enteric Coated Tablet PO SCH (10:48)
[2022-05-30] MEDS: Amlodipine 10 MG TAB PO SCH (10:48)
[2022-05-30] MEDS: Hydrochlorothiazide 25 MG TAB PO SCH (10:49)
[2022-05-30] MEDS: Ezetimibe 10 MG TAB PO SCH (10:49)
[2022-05-30] MEDS: Furosemide 40 MG/4 ML VIAL SLOW IVP SCH (10:49)
[2022-05-30] MEDS: Empagliflozin 10 MG TAB PO SCH (10:49)
[2022-05-30] MEDS: Losartan 25 MG TAB PO SCH (10:50)
[2022-05-30] MEDS: Isosorbide Dinitrate 20 MG TAB PO SCH ×2 (10:50→20:42)
[2022-05-30] MEDS: Rosuvastatin 20 MG TAB PO SCH (10:51)
[2022-05-30] MEDS: Acetylcysteine 10% 100 MG/ML 30 ml Vial PO SCH ×2 (13:51→22:11)
[2022-05-30] MEDS ORDERED: Potassium Chloride 20 MEQ TAB PO SCH (14:45)
[2022-05-30] MEDS: Sertraline 100 MG TAB PO SCH (20:42)
[2022-05-30] MEDS: Tamsulosin HCl 0.4 MG CAP PO SCH (20:42)
[2022-05-30] MEDS ORDERED: Insulin Glargine 30 UNITS/0.3 ML VIAL SC SCH (21:00)
[2022-05-30] MEDS: traMADol HCl 50 MG TAB PO PRN (22:38)
[2022-05-31] MEDS: hydrALAZINE 25 MG TAB PO SCH ×3 (06:24→21:12)
[2022-05-31] MEDS: HumaLOG 300 UNITS/3 ML VIAL SC PRN ×3 (06:24→17:42)
[2022-05-31] MEDS ORDERED: Insulin Glargine 30 UNITS/0.3 ML VIAL SC SCH (09:00)
[2022-05-31] MEDS ORDERED: Furosemide 40 MG TAB PO SCH (09:00)
[2022-05-31] MEDS: Potassium Chloride 20 MEQ TAB PO SCH ×2 (09:45→16:41)
[2022-05-31] MEDS: Empagliflozin 10 MG TAB PO SCH (09:45)
[2022-05-31] MEDS: Aspirin 81 mg Enteric Coated Tablet PO SCH (09:45)
[2022-05-31] MEDS: Amlodipine 10 MG TAB PO SCH (09:45)
[2022-05-31] MEDS: Ezetimibe 10 MG TAB PO SCH (09:46)
[2022-05-31] MEDS: Hydrochlorothiazide 25 MG TAB PO SCH (09:46)
[2022-05-31] MEDS: Rosuvastatin 20 MG TAB PO SCH (09:47)
[2022-05-31] MEDS: Losartan 25 MG TAB PO SCH (09:47)
[2022-05-31] MEDS: Isosorbide Dinitrate 20 MG TAB PO SCH ×2 (09:47→21:14)
[2022-05-31 10:09] LABS: Anion Gap 12 mmol/L (10-20); BUN (Urea Nitrogen) 21 mg/dL (8.4-25.7); Calc. Creatinine Clearance 89 mL/min (70-130); Calcium 8.5 mg/dL (7.8-10.44); Carbon Dioxide 23 mmol/L (23-31); Chloride 106 mmol/L (98-107); Estimated GFR 75; Glucose 212 mg/dL (83-110); Potassium 3.8 mmol/L (3.5-5.1); Sodium 137 mmol/L (136-145)
[2022-05-31] MEDS: Benzonatate 100 MG CAP PO SCH ×3 (12:23→21:13)
[2022-05-31] MEDS: Acetylcysteine 10% 100 MG/ML 30 ml Vial PO SCH ×2 (12:24→21:12)
[2022-05-31] MEDS: traMADol HCl 50 MG TAB PO PRN (14:37)
[2022-05-31] MEDS: Furosemide 40 MG TAB PO SCH (14:38)
[2022-05-31] MEDS: HYDROcodone/Acetaminophen 5/325 mg Tablet PO PRN ×2 (16:39→20:27)
[2022-05-31] MEDS: FENTANYL 50 MCG/ML 1 ML VIAL SLOW IVP PRN (17:37)
[2022-05-31] MEDS: Diclofenac 1% 100 GM GEL TP SCH ×2 (17:40→21:23)
[2022-05-31] MEDS: Sertraline 100 MG TAB PO SCH (21:13)
[2022-05-31] MEDS: Tamsulosin HCl 0.4 MG CAP PO SCH (21:13)
[2022-05-31] MEDS: Insulin Glargine 30 UNITS/0.3 ML VIAL SC SCH (21:14)
[2022-06-01] MEDS: HYDROcodone/Acetaminophen 5/325 mg Tablet PO PRN ×3 (00:15→12:34)
[2022-06-01] MEDS: FENTANYL 50 MCG/ML 1 ML VIAL SLOW IVP PRN ×2 (03:55→09:19)
[2022-06-01] MEDS: hydrALAZINE 25 MG TAB PO SCH ×3 (06:04→21:34)
[2022-06-01] MEDS: HumaLOG 300 UNITS/3 ML VIAL SC PRN (06:11)
[2022-06-01] MEDS: Acetylcysteine 10% 100 MG/ML 30 ml Vial PO SCH ×2 (09:21→21:48)
[2022-06-01] MEDS: Potassium Chloride 20 MEQ TAB PO SCH ×2 (09:21→17:35)
[2022-06-01] MEDS: Diclofenac 1% 100 GM GEL TP SCH ×4 (09:22→21:35)
[2022-06-01] MEDS: Aspirin 81 mg Enteric Coated Tablet PO SCH (09:22)
[2022-06-01] MEDS: Benzonatate 100 MG CAP PO SCH ×4 (09:22→21:34)
[2022-06-01] MEDS: Amlodipine 10 MG TAB PO SCH (09:22)
[2022-06-01] MEDS: Empagliflozin 10 MG TAB PO SCH (09:23)
[2022-06-01] MEDS: Ezetimibe 10 MG TAB PO SCH (09:24)
[2022-06-01] MEDS: Furosemide 40 MG TAB PO SCH ×2 (09:24→17:33)
[2022-06-01] MEDS: Hydrochlorothiazide 25 MG TAB PO SCH (09:24)
[2022-06-01] MEDS: Insulin Glargine 30 UNITS/0.3 ML VIAL SC SCH ×2 (09:24→21:36)
[2022-06-01] MEDS: Rosuvastatin 20 MG TAB PO SCH (09:25)
[2022-06-01] MEDS: Isosorbide Dinitrate 20 MG TAB PO SCH ×2 (09:25→21:33)
[2022-06-01] MEDS: Losartan 25 MG TAB PO SCH (09:26)
[2022-06-01] MEDS ORDERED: Magnevist 469MG/ML 20 ML VIAL ONE (10:35)
[2022-06-01 11:10] LABS: Anion Gap 15 mmol/L (10-20); BUN (Urea Nitrogen) 18 mg/dL (8.4-25.7); Calc. Creatinine Clearance 92 mL/min (70-130); Calcium 8.9 mg/dL (7.8-10.44); Carbon Dioxide 23 mmol/L (23-31); Chloride 106 mmol/L (98-107); Estimated GFR 81; Glucose 144 mg/dL (83-110); Potassium 3.8 mmol/L (3.5-5.1); Sodium 140 mmol/L (136-145)
[2022-06-01] MEDS ORDERED: FENTANYL 50 MCG/ML 1 ML VIAL SLOW IVP PRN (15:54)
[2022-06-01] MEDS: Sertraline 100 MG TAB PO SCH (21:33)
[2022-06-01] MEDS: Tamsulosin HCl 0.4 MG CAP PO SCH (21:33)
[2022-06-01] MEDS: Gabapentin 100 MG CAP PO SCH (21:34)
[2022-06-02 04:21] LABS: #Eosinphils 0.1 thou/uL (0.0-0.7); #Lymphocytes 1.3 thou/uL (1.20-3.40); #Monocytes 0.7 thou/uL (0.11-0.59); #Neutrophils 4.6 thou/uL (1.40-6.50); %Basophils 0.3 % (0.0-1.0); %Eosinophils 1.6 % (0.0-10.0); %Lymphocytes 19.9 % (21.0-51.0); %Monocytes 9.9 % (0.0-10.0); %Neutrophils 68.3 % (42.0-75.0); Hemoglobin 9.6 g/dL (14.0-18.0); Mean Corpuscular HGB CONC 32.7 g/dL (32.0-36.0); Mean Corpuscular Hemoglobin 29.3 pg (27.0-31.0); Mean Corpuscular Volume 89.7 fl (78.0-98.0); Mean Platelet Volume 7.7 fL (7.4-10.4); Platelet Count 242 10x3/uL (130-400); RBC Distribution Width 16.7 % (11.5-14.5); Red Blood Cell (RBC) Count 3.27 mill/uL (4.70-6.10); White Blood Cell (WBC) Count 6.7 10x3/uL (4.8-10.8)
[2022-06-02] MEDS: HYDROcodone/Acetaminophen 5/325 mg Tablet PO PRN ×3 (04:45→17:45)
[2022-06-02] MEDS: hydrALAZINE 25 MG TAB PO SCH ×2 (06:38→14:43)
[2022-06-02] MEDS: HumaLOG 300 UNITS/3 ML VIAL SC PRN ×2 (06:39→17:44)
[2022-06-02] MEDS: Ezetimibe 10 MG TAB PO SCH (08:55)
[2022-06-02] MEDS: Losartan 25 MG TAB PO SCH (08:55)
[2022-06-02] MEDS: Benzonatate 100 MG CAP PO SCH ×4 (08:56→21:43)
[2022-06-02] MEDS: Potassium Chloride 20 MEQ TAB PO SCH ×2 (08:56→17:39)
[2022-06-02] MEDS: Furosemide 40 MG TAB PO SCH ×2 (08:56→14:43)
[2022-06-02] MEDS: Rosuvastatin 20 MG TAB PO SCH (08:56)
[2022-06-02] MEDS: Isosorbide Dinitrate 20 MG TAB PO SCH ×2 (08:56→21:40)
[2022-06-02] MEDS: Amlodipine 10 MG TAB PO SCH (08:56)
[2022-06-02] MEDS: Aspirin 81 mg Enteric Coated Tablet PO SCH (08:57)
[2022-06-02] MEDS: Hydrochlorothiazide 25 MG TAB PO SCH (08:57)
[2022-06-02] MEDS: Acetylcysteine 10% 100 MG/ML 30 ml Vial PO SCH (08:57)
[2022-06-02] MEDS: Gabapentin 100 MG CAP PO SCH ×3 (08:57→21:41)
[2022-06-02] MEDS: Empagliflozin 10 MG TAB PO SCH (08:57)
[2022-06-02] MEDS: Diclofenac 1% 100 GM GEL TP SCH ×4 (08:58→21:42)
[2022-06-02] MEDS: Insulin Glargine 30 UNITS/0.3 ML VIAL SC SCH ×2 (08:59→21:41)
[2022-06-02 09:22] LABS: Anion Gap 13 mmol/L (10-20); BUN (Urea Nitrogen) 21 mg/dL (8.4-25.7); Calc. Creatinine Clearance 71 mL/min (70-130); Calcium 8.8 mg/dL (7.8-10.44); Carbon Dioxide 26 mmol/L (23-31); Chloride 105 mmol/L (98-107); Estimated GFR 60; Glucose 131 mg/dL (83-110); Potassium 3.9 mmol/L (3.5-5.1); Sodium 140 mmol/L (136-145)
[2022-06-02] MEDS: Sertraline 100 MG TAB PO SCH (21:41)
[2022-06-02] MEDS: Tamsulosin HCl 0.4 MG CAP PO SCH (21:41)
[2022-06-03] MEDS: hydrALAZINE 25 MG TAB PO SCH ×4 (00:13→21:14)
[2022-06-03 04:27] LABS: #Eosinphils 0.1 thou/uL (0.0-0.7); #Lymphocytes 1.5 thou/uL (1.20-3.40); #Monocytes 0.7 thou/uL (0.11-0.59); #Neutrophils 5.4 thou/uL (1.40-6.50); %Basophils 0.1 % (0.0-1.0); %Eosinophils 1.7 % (0.0-10.0); %Lymphocytes 19.7 % (21.0-51.0); %Monocytes 9.5 % (0.0-10.0); Hemoglobin 9.2 g/dL (14.0-18.0); Mean Corpuscular HGB CONC 33.4 g/dL (32.0-36.0); Mean Corpuscular Hemoglobin 29.3 pg (27.0-31.0); Mean Corpuscular Volume 87.7 fl (78.0-98.0); Mean Platelet Volume 7.6 fL (7.4-10.4); Platelet Count 236 10x3/uL (130-400); RBC Distribution Width 16.7 % (11.5-14.5); Red Blood Cell (RBC) Count 3.13 mill/uL (4.70-6.10); White Blood Cell (WBC) Count 7.8 10x3/uL (4.8-10.8)
[2022-06-03] MEDS: HumaLOG 300 UNITS/3 ML VIAL SC PRN ×2 (07:05→14:31)
[2022-06-03] MEDS: Losartan 25 MG TAB PO SCH (09:55)
[2022-06-03] MEDS: Aspirin 81 mg Enteric Coated Tablet PO SCH (09:55)
[2022-06-03 09:56] LABS: Anion Gap 11 mmol/L (10-20); BUN (Urea Nitrogen) 29 mg/dL (8.4-25.7); Calc. Creatinine Clearance 70 mL/min (70-130); Calcium 8.2 mg/dL (7.8-10.44); Carbon Dioxide 26 mmol/L (23-31); Chloride 103 mmol/L (98-107); Estimated GFR 58; Glucose 290 mg/dL (83-110); Potassium 4.2 mmol/L (3.5-5.1); Sodium 136 mmol/L (136-145)
[2022-06-03] MEDS: Potassium Chloride 20 MEQ TAB PO SCH ×2 (09:56→18:10)
[2022-06-03] MEDS: Ibuprofen 200 MG TAB PO SCH ×3 (09:56→18:09)
[2022-06-03] MEDS: Furosemide 40 MG TAB PO SCH ×2 (09:58→14:31)
[2022-06-03] MEDS: Isosorbide Dinitrate 20 MG TAB PO SCH ×2 (09:58→21:14)
[2022-06-03] MEDS: Rosuvastatin 20 MG TAB PO SCH (09:58)
[2022-06-03] MEDS: Gabapentin 100 MG CAP PO SCH ×3 (09:59→21:16)
[2022-06-03] MEDS: Ezetimibe 10 MG TAB PO SCH (09:59)
[2022-06-03] MEDS: Amlodipine 10 MG TAB PO SCH (10:00)
[2022-06-03] MEDS: Hydrochlorothiazide 25 MG TAB PO SCH (10:00)
[2022-06-03] MEDS: Empagliflozin 10 MG TAB PO SCH (10:01)
[2022-06-03] MEDS: Benzonatate 100 MG CAP PO SCH ×4 (10:01→21:19)
[2022-06-03] MEDS: Diclofenac 1% 100 GM GEL TP SCH ×4 (10:02→21:18)
[2022-06-03] MEDS: Insulin Glargine 30 UNITS/0.3 ML VIAL SC SCH ×2 (10:03→21:19)
[2022-06-03] MEDS ORDERED: Communication Order-Pharmacy FS ONE (17:04)
[2022-06-03] MEDS: Tamsulosin HCl 0.4 MG CAP PO SCH (21:15)
[2022-06-03] MEDS: Sertraline 100 MG TAB PO SCH (21:16)
[2022-06-04 03:50] LABS: #Eosinphils 0.1 thou/uL (0.0-0.7); #Lymphocytes 1.3 thou/uL (1.20-3.40); #Monocytes 0.6 thou/uL (0.11-0.59); %Basophils 0.5 % (0.0-1.0); %Eosinophils 1.3 % (0.0-10.0); %Lymphocytes 21.4 % (21.0-51.0); %Monocytes 9.8 % (0.0-10.0); %Neutrophils 66.9 % (42.0-75.0); Hemoglobin 9.4 g/dL (14.0-18.0); Mean Corpuscular HGB CONC 33.1 g/dL (32.0-36.0); Mean Corpuscular Hemoglobin 29.6 pg (27.0-31.0); Mean Corpuscular Volume 89.4 fl (78.0-98.0); Mean Platelet Volume 7.7 fL (7.4-10.4); Platelet Count 209 10x3/uL (130-400); RBC Distribution Width 16.9 % (11.5-14.5); Red Blood Cell (RBC) Count 3.16 mill/uL (4.70-6.10); White Blood Cell (WBC) Count 5.9 10x3/uL (4.8-10.8)
[2022-06-04] MEDS: hydrALAZINE 25 MG TAB PO SCH ×3 (06:06→21:29)
[2022-06-04] MEDS: HumaLOG 300 UNITS/3 ML VIAL SC PRN ×2 (06:08→15:56)
[2022-06-04] MEDS ORDERED: Insulin Glargine 30 UNITS/0.3 ML VIAL SC SCH (07:27)
[2022-06-04 09:10] LABS: Anion Gap 15 mmol/L (10-20); BUN (Urea Nitrogen) 32 mg/dL (8.4-25.7); Calc. Creatinine Clearance 56 mL/min (70-130); Calcium 8.4 mg/dL (7.8-10.44); Carbon Dioxide 25 mmol/L (23-31); Chloride 103 mmol/L (98-107); Estimated GFR 49; Glucose 277 mg/dL (83-110); Potassium 4.5 mmol/L (3.5-5.1); Sodium 138 mmol/L (136-145)
[2022-06-04] MEDS: Rosuvastatin 20 MG TAB PO SCH (09:55)
[2022-06-04] MEDS: Ezetimibe 10 MG TAB PO SCH (09:55)
[2022-06-04] MEDS: Potassium Chloride 20 MEQ TAB PO SCH ×2 (09:55→15:50)
[2022-06-04] MEDS: Aspirin 81 mg Enteric Coated Tablet PO SCH (09:56)
[2022-06-04] MEDS: Ibuprofen 200 MG TAB PO SCH ×3 (09:56→17:12)
[2022-06-04] MEDS: Empagliflozin 10 MG TAB PO SCH (10:02)
[2022-06-04] MEDS: Amlodipine 10 MG TAB PO SCH (10:02)
[2022-06-04] MEDS: Losartan 25 MG TAB PO SCH (10:04)
[2022-06-04] MEDS: Gabapentin 100 MG CAP PO SCH ×3 (10:04→21:28)
[2022-06-04] MEDS: Hydrochlorothiazide 25 MG TAB PO SCH (10:04)
[2022-06-04] MEDS: Furosemide 40 MG TAB PO SCH (10:05)
[2022-06-04] MEDS: Diclofenac 1% 100 GM GEL TP SCH ×4 (10:05→20:56)
[2022-06-04] MEDS: Benzonatate 100 MG CAP PO SCH ×4 (10:05→20:50)
[2022-06-04] MEDS: Isosorbide Dinitrate 20 MG TAB PO SCH ×2 (10:09→20:50)
[2022-06-04 16:43] LABS: SARS-CoV-2 NAA Rapid Test Not Detected (NotDetected)
[2022-06-04] MEDS: Sertraline 100 MG TAB PO SCH (20:50)
[2022-06-04] MEDS: Tamsulosin HCl 0.4 MG CAP PO SCH (20:50)
[2022-06-04] MEDS: Insulin Glargine 30 UNITS/0.3 ML VIAL SC SCH (20:51)
[2022-06-05 05:05] LABS: #Eosinphils 0.1 thou/uL (0.0-0.7); #Lymphocytes 1.4 thou/uL (1.20-3.40); #Monocytes 0.5 thou/uL (0.11-0.59); #Neutrophils 3.8 thou/uL (1.40-6.50); %Basophils 0.5 % (0.0-1.0); %Eosinophils 1.8 % (0.0-10.0); %Lymphocytes 23.1 % (21.0-51.0); %Monocytes 9.2 % (0.0-10.0); %Neutrophils 65.5 % (42.0-75.0); Hemoglobin 8.6 g/dL (14.0-18.0); Mean Corpuscular Hemoglobin 28.8 pg (27.0-31.0); Mean Platelet Volume 7.5 fL (7.4-10.4); Platelet Count 204 10x3/uL (130-400); RBC Distribution Width 16.9 % (11.5-14.5); Red Blood Cell (RBC) Count 2.98 mill/uL (4.70-6.10); White Blood Cell (WBC) Count 5.8 10x3/uL (4.8-10.8)
[2022-06-05] MEDS: Losartan 25 MG TAB PO SCH (05:37)
[2022-06-05] MEDS ORDERED: Dexamethasone 4 mg/ml Vial ONE (06:18)
[2022-06-05] MEDS ORDERED: Albumin 5% 500 ML ONE (06:18)
[2022-06-05] MEDS ORDERED: Bupivacaine HCl 0.5%/Epinephrine 1:200,000/PF 30 ml Vial ONE (06:18)
[2022-06-05] MEDS ORDERED: Lidocaine 1% MPF 2 ML VIAL ONE (06:47)
[2022-06-05] MEDS ORDERED: Heparin 10,000 UNITS/1 ML VIAL 30,000 UNITS in Sodium Chloride 0.9% 1,000 ML FS SCH (07:00)
[2022-06-05] MEDS ORDERED: Sodium Chloride 0.9% 100 ML ONE (07:18)
[2022-06-05] MEDS ORDERED: CEFAZOLIN 2 GM VIAL ONE (07:18)
[2022-06-05] MEDS ORDERED: fentaNYL PF 100 MCG/2 ML SYRINGE ONE (07:22)
[2022-06-05] MEDS ORDERED: Midazolam HCl 2 mg/2 ml Vial ONE (07:22)
[2022-06-05] MEDS ORDERED: Lidocaine 2% PF 100 mg/5 ml Syringe ONE (07:23)
[2022-06-05] MEDS ORDERED: Papaverine 60 MG/2 ML VIAL ONE (07:23)
[2022-06-05] MEDS ORDERED: DOPamine 400 MG/10 ML VIAL ONE (07:23)
[2022-06-05] MEDS ORDERED: Thrombin 5000 UNITS/5 ML VIAL ONE (07:23)
[2022-06-05] MEDS ORDERED: Magnesium Sulfate 1 GM/2 ML VIAL ONE (07:23)
[2022-06-05] MEDS ORDERED: Protamine Sulfate 250 MG/25 ML VIAL ONE (07:23)
[2022-06-05] MEDS ORDERED: Mannitol 12.5 GM/50 ML ONE (07:23)
[2022-06-05] MEDS ORDERED: PROPOFOL 200 MG/20 ML VIAL ONE (07:23)
[2022-06-05] MEDS ORDERED: Heparin 30,000 units/30 ml VIAL ONE (07:23)
[2022-06-05] MEDS ORDERED: Potassium Chloride 60 MEQ/30 ML VIAL ONE (07:23)
[2022-06-05] MEDS ORDERED: Albumin 25% 25 GM/100 ML BOT ONE (07:23)
[2022-06-05] MEDS ORDERED: Norepinephrine 4 MG/4 ML VIAL ONE (07:23)
[2022-06-05] MEDS ORDERED: Vancomycin 1 GM VIAL ONE (07:23)
[2022-06-05] MEDS ORDERED: Calcium Chloride 1 GM/10 ML Abboject SYRINGE ONE (07:23)
[2022-06-05] MEDS ORDERED: Aminocaproic Acid 5 GM/20 ML VIAL ONE (07:23)
[2022-06-05] MEDS ORDERED: Heparin 5,000 UNITS/ML VIAL ONE (07:23)
[2022-06-05] MEDS ORDERED: Sodium Bicarb 50 MEQ/50 ML Abboject 8.4% SYRINGE ONE (07:23)
[2022-06-05] MEDS ORDERED: Vecuronium 10 MG VIAL ONE (07:23)
[2022-06-05] MEDS ORDERED: Cardioplegic Soln 1,000 ML BAG ONE (07:23)
[2022-06-05 09:00] LABS: Anion Gap 14 mmol/L (10-20); BUN (Urea Nitrogen) 35 mg/dL (8.4-25.7); Calc. Creatinine Clearance 71 mL/min (70-130); Calcium 8.4 mg/dL (7.8-10.44); Carbon Dioxide 23 mmol/L (23-31); Chloride 107 mmol/L (98-107); Estimated GFR 60; Glucose 133 mg/dL (83-110); Potassium 4.1 mmol/L (3.5-5.1); Sodium 140 mmol/L (136-145)
[2022-06-05] MEDS ORDERED: FENTANYL 50 MCG/ML 1 ML VIAL SLOW IVP PRN ×2 (10:47)
[2022-06-05] MEDS ORDERED: niCARdipine 25 MG in Sodium Chloride 0.9% 250 ML 250 ML IVPB PRN (10:47)
[2022-06-05] MEDS ORDERED: Bisacodyl 10 MG SUPP PR PRN (10:47)
[2022-06-05] MEDS ORDERED: Potassium Chloride 20 MEQ/100 ML PREMIX BAG IVPB PRN (10:47)
[2022-06-05] MEDS ORDERED: NOREPINEPHRINE 8 MG/250 ML-D5W 250 ML IVPB PRN (10:47)
[2022-06-05] MEDS ORDERED: Ipratropium/Albuterol 3 ML NEB NEB PRN (10:47)
[2022-06-05] MEDS ORDERED: hydrALAZINE 20 MG/ML VIAL SLOW IVP PRN (10:47)
[2022-06-05] MEDS ORDERED: traMADol HCl 50 MG TAB PO PRN (10:47)
[2022-06-05] MEDS ORDERED: Hetastarch 6% 500 ML 500 ML IVPB PRN (10:47)
[2022-06-05] MEDS ORDERED: Mag-Al 1200 mg/1200 mg/30 ML UDCUP PO PRN (10:47)
[2022-06-05] MEDS ORDERED: Guaifenesin DM 100-10/5 ML UDCUP PO PRN (10:47)
[2022-06-05] MEDS ORDERED: Post-Op Insulin Drip Protocol IVPB ONE (10:47)
[2022-06-05] MEDS ORDERED: Promethazine HCl 25 MG/ML VIAL IM PRN (10:47)
[2022-06-05 11:00] LABS: #Eosinphils 0.1 thou/uL (0.0-0.7); #Lymphocytes 2.2 thou/uL (1.20-3.40); #Monocytes 1.1 thou/uL (0.11-0.59); #Neutrophils 10.2 thou/uL (1.40-6.50); %Basophils 0.1 % (0.0-1.0); %Lymphocytes 16.4 % (21.0-51.0); %Monocytes 7.9 % (0.0-10.0); %Neutrophils 74.6 % (42.0-75.0); Hemoglobin 9.2 g/dL (14.0-18.0); Mean Corpuscular HGB CONC 31.5 g/dL (32.0-36.0); Mean Corpuscular Volume 88.7 fl (78.0-98.0); Mean Platelet Volume 7.8 fL (7.4-10.4); Platelet Count 202 10x3/uL (130-400); RBC Distribution Width 19.9 % (11.5-14.5); Red Blood Cell (RBC) Count 3.29 mill/uL (4.70-6.10); White Blood Cell (WBC) Count 13.6 10x3/uL (4.8-10.8)
[2022-06-05] MEDS ORDERED: Dextrose 50% Abboject 50 ML SYRINGE SLOW IVP PRN (11:00)
[2022-06-05] MEDS ORDERED: HUMULIN R 100 UNITS in Sodium Chloride 0.9% 100 ML IVPB SCH (11:00)
[2022-06-05] MEDS ORDERED: Dextrose 5% in Water 1,000 ML IV PRN (11:00)
[2022-06-05] MEDS: hydrALAZINE 25 MG TAB PO SCH (11:05)
[2022-06-05] MEDS: Furosemide 40 MG TAB PO SCH (11:06)
[2022-06-05] MEDS: Potassium Chloride 20 MEQ TAB PO SCH (11:06)
[2022-06-05] MEDS: Ibuprofen 200 MG TAB PO SCH (11:06)
[2022-06-05] MEDS: Lactated Ringer's 1,000 ML IV SCH (11:07)
[2022-06-05 11:11] LABS: INR-International Normal Ratio 1.2; PTT 34.4 sec (22.9-36.1); Prothrombin Time 15.4 sec (12.0-14.7)
[2022-06-05 11:22] LABS: Anion Gap 12 mmol/L (10-20); BUN (Urea Nitrogen) 29 mg/dL (8.4-25.7); Calc. Creatinine Clearance 70 mL/min (70-130); Calcium 7.6 mg/dL (7.8-10.44); Carbon Dioxide 24 mmol/L (23-31); Chloride 108 mmol/L (98-107); Estimated GFR 59; Glucose 225 mg/dL (83-110); Potassium 4.6 mmol/L (3.5-5.1); Sodium 139 mmol/L (136-145)
[2022-06-05] MEDS ORDERED: CEFAZOLIN 2 GM in Sodium Chloride 0.9% 100 ML IVPB SCH (12:00)
[2022-06-05] MEDS: Ketorolac Tromethamine 30 MG/ML VIAL IVP SCH ×3 (12:48→22:21)
[2022-06-05] MEDS: CEFAZOLIN 2 GM in Sodium Chloride 0.9% 100 ML IVPB SCH ×2 (12:49→20:59)
[2022-06-05] MEDS: Ondansetron PF 4 MG/2 ML Vial IVP PRN ×2 (13:45→22:38)
[2022-06-05] MEDS ORDERED: DOPamine 400 MG/D5W 250 ML 250 ML IVPB SCH (15:00)
[2022-06-05 17:05] LABS: Hemoglobin 8.4 g/dL (14.0-18.0)
[2022-06-05 17:20] LABS: Potassium 4.6 mmol/L (3.5-5.1)
[2022-06-05] MEDS: Atorvastatin Calcium 20 MG TAB PO SCH (20:23)
[2022-06-05] MEDS: Famotidine/PF 20 mg/2ml Vial SLOW IVP SCH (20:26)
[2022-06-05 22:12] LABS: Actual Bicarbonate (HCO3a) 21.3 mEq/L (22-28); Base Excess (BEa) -2.9 mEq/L (-2.0 to +3.0); CO2 Tension 34.2 mmHg (35.0-45.0); Calcium, Ionized (arterial) 1.13 mmol/L (1.12-1.30); Carboxyhemoglobin (COHb) 0.2 gm% (0.0-3.0); Hemoglobin (Hb) 8.7 g/dL (14.0-18.0); O2 Tension (PaO2), arterial 82.1 mmHg (> 70.0); Potassium - ABG Lab 4.41 mmol/L (3.70-5.30); pH, Arterial 7.41 (7.35-7.45)
[2022-06-05 22:38] LABS: Puncture Site Arterial Line
[2022-06-06 04:10] LABS: #Lymphocytes 0.9 thou/uL (1.20-3.40); #Monocytes 1.1 thou/uL (0.11-0.59); #Neutrophils 9.7 thou/uL (1.40-6.50); %Basophils 0.1 % (0.0-1.0); %Eosinophils 0.1 % (0.0-10.0); %Lymphocytes 7.4 % (21.0-51.0); %Neutrophils 83.5 % (42.0-75.0); Hemoglobin 8.2 g/dL (14.0-18.0); Mean Corpuscular HGB CONC 30.9 g/dL (32.0-36.0); Mean Corpuscular Hemoglobin 27.9 pg (27.0-31.0); Mean Corpuscular Volume 90.3 fl (78.0-98.0); Mean Platelet Volume 8.3 fL (7.4-10.4); Platelet Count 194 10x3/uL (130-400); RBC Distribution Width 20.3 % (11.5-14.5); Red Blood Cell (RBC) Count 2.94 mill/uL (4.70-6.10); White Blood Cell (WBC) Count 11.7 10x3/uL (4.8-10.8)
[2022-06-06 04:26] LABS: Anion Gap 14 mmol/L (10-20); BUN (Urea Nitrogen) 37 mg/dL (8.4-25.7); Calc. Creatinine Clearance 59 mL/min (70-130); Calcium 8.1 mg/dL (7.8-10.44); Carbon Dioxide 22 mmol/L (23-31); Chloride 109 mmol/L (98-107); Estimated GFR 48; Glucose 113 mg/dL (83-110); Potassium 4.8 mmol/L (3.5-5.1); Sodium 140 mmol/L (136-145)
[2022-06-06] MEDS: Ketorolac Tromethamine 30 MG/ML VIAL IVP SCH (05:15)
[2022-06-06] MEDS: CEFAZOLIN 2 GM in Sodium Chloride 0.9% 100 ML IVPB SCH (05:15)
[2022-06-06] MEDS: Lactated Ringer's 1,000 ML IV SCH (05:16)
[2022-06-06] MEDS: Ondansetron PF 4 MG/2 ML Vial IVP PRN ×2 (05:59→12:25)
[2022-06-06] MEDS: Famotidine/PF 20 mg/2ml Vial SLOW IVP SCH ×2 (08:01→22:17)
[2022-06-06] MEDS: Aspirin 325 MG TAB PO SCH (08:01)
[2022-06-06] MEDS: Magnesium 2 GM/50 ML(in water) 2 GM in Premix Bag 1 BAG IVPB SCH (08:02)
[2022-06-06] MEDS ORDERED: Insulin Glargine 30 UNITS/0.3 ML VIAL SC PRN (10:51)
[2022-06-06] MEDS: Insulin Regular 300 UNITS/3 ML VIAL SC PRN ×3 (11:32→22:18)
[2022-06-06] MEDS: traMADol HCl 50 MG TAB PO PRN (11:40)
[2022-06-06] MEDS: Acetaminophen 325 MG TAB PO PRN (18:00)
[2022-06-06] MEDS: Atorvastatin Calcium 20 MG TAB PO SCH (22:16)
[2022-06-06] MEDS: Tamsulosin HCl 0.4 MG CAP PO SCH (22:17)
[2022-06-07] MEDS: Acetaminophen 325 MG TAB PO PRN (01:54)
[2022-06-07] MEDS: Lactated Ringer's 1,000 ML IV SCH (02:00)
[2022-06-07 03:53] LABS: #Lymphocytes 0.8 thou/uL (1.20-3.40); #Monocytes 0.9 thou/uL (0.11-0.59); #Neutrophils 7.1 thou/uL (1.40-6.50); %Basophils 0.2 % (0.0-1.0); %Eosinophils 0.3 % (0.0-10.0); %Lymphocytes 9.5 % (21.0-51.0); %Monocytes 10.4 % (0.0-10.0); %Neutrophils 79.6 % (42.0-75.0); Hemoglobin 7.7 g/dL (14.0-18.0); Mean Corpuscular HGB CONC 32.2 g/dL (32.0-36.0); Mean Corpuscular Hemoglobin 28.8 pg (27.0-31.0); Mean Corpuscular Volume 89.4 fl (78.0-98.0); Mean Platelet Volume 8.2 fL (7.4-10.4); Platelet Count 159 10x3/uL (130-400); RBC Distribution Width 20.2 % (11.5-14.5); Red Blood Cell (RBC) Count 2.68 mill/uL (4.70-6.10); White Blood Cell (WBC) Count 8.9 10x3/uL (4.8-10.8)
[2022-06-07 04:11] LABS: Anion Gap 13 mmol/L (10-20); BUN (Urea Nitrogen) 33 mg/dL (8.4-25.7); Calc. Creatinine Clearance 60 mL/min (70-130); Calcium 7.9 mg/dL (7.8-10.44); Carbon Dioxide 21 mmol/L (23-31); Chloride 104 mmol/L (98-107); Estimated GFR 50; Glucose 149 mg/dL (83-110); Potassium 4.8 mmol/L (3.5-5.1); Sodium 133 mmol/L (136-145)
[2022-06-07] MEDS: traMADol HCl 50 MG TAB PO PRN ×2 (07:47→18:00)
[2022-06-07] MEDS: Losartan 25 MG TAB PO SCH (09:35)
[2022-06-07] MEDS: Aspirin 325 MG TAB PO SCH (09:35)
[2022-06-07] MEDS: Glimepiride 2 MG TAB PO SCH (09:36)
[2022-06-07] MEDS: Magnesium 2 GM/50 ML(in water) 2 GM in Premix Bag 1 BAG IVPB SCH (09:36)
[2022-06-07] MEDS: Polyethylene Glycol 3350 17 GM Packet PO SCH (09:36)
[2022-06-07] MEDS: Carvedilol 3.125 MG TAB PO SCH (17:51)
[2022-06-07] MEDS: Rosuvastatin 20 MG TAB PO SCH (21:46)
[2022-06-07] MEDS: Tamsulosin HCl 0.4 MG CAP PO SCH (21:46)
[2022-06-08 05:14] LABS: #Lymphocytes 0.7 thou/uL (1.20-3.40); #Monocytes 0.7 thou/uL (0.11-0.59); #Neutrophils 5.7 thou/uL (1.40-6.50); %Basophils 0.1 % (0.0-1.0); %Eosinophils 0.4 % (0.0-10.0); %Lymphocytes 10.4 % (21.0-51.0); %Monocytes 10.2 % (0.0-10.0); Hemoglobin 7.6 g/dL (14.0-18.0); Mean Corpuscular HGB CONC 31.8 g/dL (32.0-36.0); Mean Corpuscular Hemoglobin 28.6 pg (27.0-31.0); Mean Corpuscular Volume 90.2 fl (78.0-98.0); Mean Platelet Volume 8.5 fL (7.4-10.4); Platelet Count 160 10x3/uL (130-400); RBC Distribution Width 19.8 % (11.5-14.5); Red Blood Cell (RBC) Count 2.67 mill/uL (4.70-6.10); White Blood Cell (WBC) Count 7.2 10x3/uL (4.8-10.8)
[2022-06-08 06:07] LABS: BUN (Urea Nitrogen) 31 mg/dL (8.4-25.7); Calc. Creatinine Clearance 90 mL/min (70-130); Carbon Dioxide 23 mmol/L (23-31); Estimated GFR 82; Glucose 158 mg/dL (83-110)
[2022-06-08 06:15] LABS: Anion Gap 14 mmol/L (10-20); Chloride 105 mmol/L (98-107); Potassium 4.6 mmol/L (3.5-5.1); Sodium 136 mmol/L (136-145)
[2022-06-08] MEDS ORDERED: Furosemide 40 MG TAB PO SCH (07:30)
[2022-06-08] MEDS ORDERED: Potassium Chloride 10 MEQ TAB PO SCH (08:00)
[2022-06-08] MEDS: Acetaminophen 325 MG TAB PO PRN ×3 (08:54→20:35)
[2022-06-08] MEDS: Aspirin 325 MG TAB PO SCH (08:54)
[2022-06-08] MEDS: Glimepiride 2 MG TAB PO SCH (08:54)
[2022-06-08] MEDS: Furosemide 40 MG TAB PO SCH ×2 (08:54→13:59)
[2022-06-08] MEDS: Carvedilol 3.125 MG TAB PO SCH ×2 (08:55→16:55)
[2022-06-08] MEDS: Potassium Chloride 10 MEQ TAB PO SCH ×2 (08:55→16:55)
[2022-06-08] MEDS: Losartan 25 MG TAB PO SCH (08:55)
[2022-06-08] MEDS: Polyethylene Glycol 3350 17 GM Packet PO SCH (08:59)
[2022-06-08] MEDS: GUAIFENESIN SF SOLN 200 MG/10 ML UDCUP PO PRN (09:20)
[2022-06-08] MEDS ORDERED: Amiodarone 150 MG, Admixture Fee 1 EACH in Dextrose 5% in Water 100 ML IVPB SCH (13:30)
[2022-06-08] MEDS ORDERED: Dextrose 50% Abboject 50 ML SYRINGE SLOW IVP PRN (13:43)
[2022-06-08] MEDS ORDERED: Dextrose 5% in Water 1,000 ML IV PRN (13:43)
[2022-06-08] MEDS: Amiodarone 450 MG, Admixture Fee 1 EACH in Dextrose 5% in Water 250 ML IVPB SCH ×2 (13:59→23:57)
[2022-06-08 14:34] LABS: ALT (SGPT) 33 U/L (8-55); AST (SGOT) 58 U/L (5-34); Alkaline Phosphatase 73 U/L (40-110); Bilirubin, Direct 0.2 mg/dL (0.1-0.3); Bilirubin, Total 0.5 mg/dL (0.2-1.2); Magnesium 2.4 mg/dL (1.6-2.6)
[2022-06-08] MEDS ORDERED: Benzonatate 100 MG CAP PO SCH (15:30)
[2022-06-08] MEDS: Insulin Regular 300 UNITS/3 ML VIAL SC PRN ×2 (18:48→23:11)
[2022-06-08] MEDS: Rosuvastatin 20 MG TAB PO SCH (20:38)
[2022-06-08] MEDS: Tamsulosin HCl 0.4 MG CAP PO SCH (20:38)
[2022-06-08] MEDS: Benzonatate 100 MG CAP PO SCH (20:38)
[2022-06-09] MEDS: GUAIFENESIN SF SOLN 200 MG/10 ML UDCUP PO PRN (04:56)
[2022-06-09] MEDS: Acetaminophen 325 MG TAB PO PRN ×2 (04:56→10:09)
[2022-06-09 05:36] LABS: #Eosinphils 0.1 thou/uL (0.0-0.7); #Lymphocytes 0.8 thou/uL (1.20-3.40); #Monocytes 0.5 thou/uL (0.11-0.59); #Neutrophils 4.2 thou/uL (1.40-6.50); %Basophils 0.1 % (0.0-1.0); %Lymphocytes 13.9 % (21.0-51.0); %Monocytes 8.9 % (0.0-10.0); %Neutrophils 76.1 % (42.0-75.0); Hemoglobin 8.3 g/dL (14.0-18.0); Mean Corpuscular HGB CONC 31.5 g/dL (32.0-36.0); Mean Corpuscular Volume 88.9 fl (78.0-98.0); Mean Platelet Volume 8.2 fL (7.4-10.4); Platelet Count 188 10x3/uL (130-400); RBC Distribution Width 19.6 % (11.5-14.5); Red Blood Cell (RBC) Count 2.96 mill/uL (4.70-6.10); White Blood Cell (WBC) Count 5.5 10x3/uL (4.8-10.8)
[2022-06-09 05:54] LABS: Anion Gap 13 mmol/L (10-20); BUN (Urea Nitrogen) 27 mg/dL (8.4-25.7); Calc. Creatinine Clearance 90 mL/min (70-130); Calcium 8.3 mg/dL (7.8-10.44); Carbon Dioxide 26 mmol/L (23-31); Chloride 104 mmol/L (98-107); Estimated GFR 80; Glucose 216 mg/dL (83-110); Potassium 4.4 mmol/L (3.5-5.1); Sodium 139 mmol/L (136-145)
[2022-06-09] MEDS: Insulin Regular 300 UNITS/3 ML VIAL SC PRN ×3 (06:46→17:26)
[2022-06-09] MEDS: Losartan 25 MG TAB PO SCH (09:19)
[2022-06-09] MEDS: Potassium Chloride 10 MEQ TAB PO SCH ×2 (09:19→17:25)
[2022-06-09] MEDS: Glimepiride 2 MG TAB PO SCH (09:19)
[2022-06-09] MEDS: Furosemide 40 MG TAB PO SCH ×2 (09:19→15:05)
[2022-06-09] MEDS: Aspirin 325 MG TAB PO SCH (09:19)
[2022-06-09] MEDS: Benzonatate 100 MG CAP PO SCH ×3 (09:19→20:58)
[2022-06-09] MEDS: Carvedilol 6.25 MG TAB PO SCH ×2 (09:19→17:24)
[2022-06-09] MEDS: Polyethylene Glycol 3350 17 GM Packet PO SCH (09:20)
[2022-06-09] MEDS: Carvedilol 3.125 MG TAB PO SCH (09:23)
[2022-06-09] MEDS: Bisacodyl 5 MG TAB PO PRN (11:11)
[2022-06-09] MEDS: Acetaminophen 325 MG TAB PO SCH ×2 (15:05→20:57)
[2022-06-09] MEDS: Tamsulosin HCl 0.4 MG CAP PO SCH (20:57)
[2022-06-09] MEDS: Rosuvastatin 20 MG TAB PO SCH (20:58)
[2022-06-10 04:47] LABS: #Eosinphils 0.1 thou/uL (0.0-0.7); #Monocytes 0.5 thou/uL (0.11-0.59); #Neutrophils 4.2 thou/uL (1.40-6.50); %Basophils 0.2 % (0.0-1.0); %Eosinophils 1.4 % (0.0-10.0); %Lymphocytes 17.5 % (21.0-51.0); %Monocytes 9.2 % (0.0-10.0); %Neutrophils 71.7 % (42.0-75.0); Hemoglobin 8.1 g/dL (14.0-18.0); Mean Corpuscular HGB CONC 32.1 g/dL (32.0-36.0); Mean Corpuscular Hemoglobin 28.8 pg (27.0-31.0); Mean Corpuscular Volume 89.8 fl (78.0-98.0); Mean Platelet Volume 7.4 fL (7.4-10.4); Platelet Count 212 10x3/uL (130-400); RBC Distribution Width 19.4 % (11.5-14.5); White Blood Cell (WBC) Count 5.9 10x3/uL (4.8-10.8)
[2022-06-10 05:12] LABS: Anion Gap 12 mmol/L (10-20); BUN (Urea Nitrogen) 24 mg/dL (8.4-25.7); Calc. Creatinine Clearance 87 mL/min (70-130); Calcium 8.3 mg/dL (7.8-10.44); Carbon Dioxide 25 mmol/L (23-31); Chloride 103 mmol/L (98-107); Estimated GFR 75; Glucose 243 mg/dL (83-110); Potassium 4.2 mmol/L (3.5-5.1); Sodium 136 mmol/L (136-145)
[2022-06-10] MEDS: Amiodarone 450 MG, Admixture Fee 1 EACH in Dextrose 5% in Water 250 ML IVPB SCH (06:49)
[2022-06-10] MEDS: Acetaminophen 325 MG TAB PO SCH ×2 (08:12→13:57)
[2022-06-10] MEDS: Aspirin 325 MG TAB PO SCH (08:12)
[2022-06-10] MEDS: Carvedilol 6.25 MG TAB PO SCH (08:13)
[2022-06-10] MEDS: Glimepiride 2 MG TAB PO SCH (08:13)
[2022-06-10] MEDS: Benzonatate 100 MG CAP PO SCH ×2 (08:13→14:00)
[2022-06-10] MEDS: Furosemide 40 MG TAB PO SCH ×2 (08:14→13:57)
[2022-06-10] MEDS: Losartan 25 MG TAB PO SCH (08:14)
[2022-06-10] MEDS: Polyethylene Glycol 3350 17 GM Packet PO SCH (08:14)
[2022-06-10] MEDS: Potassium Chloride 10 MEQ TAB PO SCH (08:22)
[2022-06-10] MEDS: Bisacodyl 5 MG TAB PO PRN (08:22)
[2022-06-10] MEDS ORDERED: PROPOFOL 200 MG/20 ML VIAL ONE (10:05)
[2022-06-10] MEDS ORDERED: Amiodarone 200 MG TAB PO SCH ×2 (11:30→21:00)
[2022-06-10 12:01] VITALS: BP 155/74; TEMP 98.3
[2022-06-10] MEDS: Insulin Regular 300 UNITS/3 ML VIAL SC PRN (12:30)
[2022-06-10 13:43] LABS: Base Excess (BEa) 0.7 mEq/L (-2.0 to +3.0); CO2 Tension 45.5 mmHg (35.0-45.0); Carboxyhemoglobin (COHb) 1.7 gm% (0.0-3.0); Hemoglobin (Hb) 7.8 g/dL (14.0-18.0); O2 Tension (PaO2), arterial 70.6 mmHg (> 70.0); pH, Arterial 7.38 (7.35-7.45)
[2022-06-10 13:43] LABS: Actual Bicarbonate (HCO3a) 22.4 mEq/L (22-28); Analyzer IN Cardio OR; Base Excess (BEa) -2.8 mEq/L (-2.0 to +3.0); CO2 Tension 40.9 mmHg (35.0-45.0); Calcium, Ionized (arterial) 1.11 mmol/L (1.12-1.30); Carboxyhemoglobin (COHb) 0.9 gm% (0.0-3.0); Hemoglobin (Hb) 9.1 g/dL (14.0-18.0); O2 Tension (PaO2), arterial 152.2 mmHg (> 70.0); pH, Arterial 7.36 (7.35-7.45)
[2022-06-10 13:43] LABS: Actual Bicarbonate (HCO3a) 23.7 mEq/L (22-28); Analyzer IN Cardio OR; Base Excess (BEa) -1.2 mEq/L (-2.0 to +3.0); CO2 Tension 40.1 mmHg (35.0-45.0); Calcium, Ionized (arterial) 1.01 mmol/L (1.12-1.30); Carboxyhemoglobin (COHb) 1.5 gm% (0.0-3.0); O2 Tension (PaO2), arterial 401.3 mmHg (> 70.0); Potassium - ABG Lab 5.04 mmol/L (3.70-5.30); pH, Arterial 7.39 (7.35-7.45)
[2022-06-10 13:44] LABS: Actual Bicarbonate (HCO3a) 26.2 mEq/L (22-28); Analyzer IN Cardio OR; Base Excess (BEa) 0.9 mEq/L (-2.0 to +3.0); CO2 Tension 44.5 mmHg (35.0-45.0); Calcium, Ionized (arterial) 1.12 mmol/L (1.12-1.30); Potassium - ABG Lab 3.97 mmol/L (3.70-5.30); pH, Arterial 7.39 (7.35-7.45)
[2022-06-10 13:44] LABS: Analyzer IN Cardio OR; Calcium, Ionized (arterial) 1.08 mmol/L (1.12-1.30)
[2022-06-10 13:45] LABS: Puncture Site Arterial Line
[2022-06-10 13:46] LABS: Puncture Site Arterial Line
[2022-06-10 13:46] LABS: Puncture Site Arterial Line
[2022-06-10 13:47] LABS: Puncture Site Arterial Line
== END 2022-06-10 14:50 | disposition home or self-care (01) | DRG 981 ==
LOC: T4-B 04:52 → INTOOBSV 04:52 → OBSVTOIN 10:46 → 2NO 05-17 13:53 → IMCU/EMU 05-22 11:57 → 2NO 06-04 19:24 → CCU 06-05 07:08 → 2NO 06-06 17:48
PROVIDERS: ADMIT Hospitalist; ATTEND Hospitalist
PROC: 4A023N7 Measurement of Cardiac Sampling and Pressure, Left Heart, Percutaneous Approach (ICD-10-PCS; 2022-05-19)
PROC: B2151ZZ Fluoroscopy of Left Heart using Low Osmolar Contrast (ICD-10-PCS; 2022-05-19)
PROC: B2111ZZ Fluoroscopy of Multiple Coronary Arteries using Low Osmolar Contrast (ICD-10-PCS; 2022-05-19)
PROC: 02100Z9 Bypass Coronary Artery, One Artery from Left Internal Mammary, Open Approach (ICD-10-PCS; principal; 2022-06-04)
PROC: 021109W Bypass Coronary Artery, Two Arteries from Aorta with Autologous Venous Tissue, Open Approach (ICD-10-PCS; 2022-06-04)
PROC: 06BP4ZZ Excision of Right Saphenous Vein, Percutaneous Endoscopic Approach (ICD-10-PCS; 2022-06-04)
PROC: 5A1221Z Performance of Cardiac Output, Continuous (ICD-10-PCS; 2022-06-04)
PROC: 02L70CK Occlusion of Left Atrial Appendage with Extraluminal Device, Open Approach (ICD-10-PCS; 2022-06-04)
PROC: 30233N1 Transfusion of Nonautologous Red Blood Cells into Peripheral Vein, Percutaneous Approach (ICD-10-PCS; 2022-06-05)
PROC: 5A2204Z Restoration of Cardiac Rhythm, Single (ICD-10-PCS; 2022-06-10)
DX: J10.01 Influenza due to other identified influenza virus with the same other identified influenza virus pneumonia (principal); I21.A1 Myocardial infarction type 2; G93.41 Metabolic encephalopathy; J96.01 Acute respiratory failure with hypoxia; R57.0 Cardiogenic shock; D62 Acute posthemorrhagic anemia; I50.20 Unspecified systolic (congestive) heart failure; N17.9 Acute kidney failure, unspecified; L03.116 Cellulitis of left lower limb; J18.9 Pneumonia, unspecified organism; Z20.822 Contact with and (suspected) exposure to COVID-19; I25.10 Atherosclerotic heart disease of native coronary artery without angina pectoris; N40.0 Benign prostatic hyperplasia without lower urinary tract symptoms; M19.90 Unspecified osteoarthritis, unspecified site; S93.402A Sprain of unspecified ligament of left ankle, initial encounter; F17.220 Nicotine dependence, chewing tobacco, uncomplicated; E86.0 Dehydration; F41.9 Anxiety disorder, unspecified; E78.00 Pure hypercholesterolemia, unspecified; E11.65 Type 2 diabetes mellitus with hyperglycemia; F32.A Depression, unspecified; I25.5 Ischemic cardiomyopathy; I11.0 Hypertensive heart disease with heart failure; I48.91 Unspecified atrial fibrillation; J40 Bronchitis, not specified as acute or chronic; Y95 Nosocomial condition; M25.472 Effusion, left ankle; R00.1 Bradycardia, unspecified; Z78.1 Physical restraint status; Z88.5 Allergy status to narcotic agent; Z88.8 Allergy status to other drugs, medicaments and biological substances; Z95.5 Presence of coronary angioplasty implant and graft; Z82.3 Family history of stroke; Z79.899 Other long term (current) drug therapy; Z79.84 Long term (current) use of oral hypoglycemic drugs
CPT/HCPCS: 36415; 36416; 36430; 36600; 71045; 71250; 80048; 80053; 80061; 80076; 82553; 82805; 83036; 83735; 84100; 84145; 84443; 84484; 84550; 85025; 85610; 85652; 85730; 86140; 86850; 86900; 86901; 87040; 92960; 93005; 93010; 93306; 93458; 93798; 94002; 94150; 94640; 94668; 94760; 97139; 99152; 99153; A9579; C1713; C1751; C1769; C1776; C1887; C1894; G0378; J0282; J1100; J1265; J1642; J1644; J1650; J1815; J1885; J1940; J2001; J2150; J2250; J2405; J2440; J2543; J2704; J2720; J3010; J3370; J3475; J3480; J3490; J7050; J7070; J7120; J7512; J7608; J7611; J7620; P9016; P9045; P9047; Q9967; S0017; S0028; U0002